=== PATIENT | female | born 1975 | race Caucasian/White ===

== ENCOUNTER → 2016-04-19 | Outpatient (CLI) | payer BC ==
[2016-04-19 13:28] VITALS: BP 119/76; PULSE 66; TEMP 97.7; BMI 23.5
[2016-04-19 16:31] LABS: ALT 47 U/L (9-52); AST 39 U/L (14-36); Alkaline Phosphatase 86 U/L (38-126); Anion Gap 11 mmol/L; Blood Urea Nitrogen 9 mg/dL (7-17); Calcium 9.6 mg/dL (8.4-10.2); Carbon Dioxide 27 mmol/L (22-30); Chloride 102 mmol/L (98-107); Cholesterol 188 mg/dL (<200); Glucose 90 mg/dL (74-99); HDL Cholesterol 104 mg/dL (40-60); Iron 101 ug/dL (37-170); Magnesium 2.2 mg/dL (1.6-2.3); Non-African American GFR(MDRD) >60 (>60 ml/min/1.73 sqM); Phosphorous 4.2 mg/dL (2.5-4.5); Potassium 4.7 mmol/L (3.5-5.1); Sodium 140 mmol/L (137-145); Total Bilirubin 0.7 mg/dL (0.2-1.3); Total Protein 7.7 g/dL (6.3-8.2); Triglycerides 80 mg/dL (<150)
[2016-04-19 16:35] LABS: CH 30.3; CHCM 34.6; HCT 47.3 % (34.0-46.0); HDW 2.94; HGB 15.9 gm/dL (11.4-16.0); MCH 29.5 pg (25.0-35.0); MCHC 33.5 g/dL (31.0-37.0); Mean Platelet Volume 8.6; RBC 5.38 m/uL (3.80-5.40); RDW 12.7 % (11.5-15.5); WBC 5.4 k/uL (3.8-10.6)
[2016-04-19 16:39] LABS: INR 1.1 (<1.1); Partial Thromboplastin Time 24.5 sec (22.0-30.0); Prothrombin Time 11.2 sec (9.0-12.0)
[2016-04-19 16:43] LABS: % Iron Saturation 40.4 % (20-50); Prealbumin 21 mg/dL (18-36); Total Iron Binding Capacity 250 ug/dL (265-497)
[2016-04-19 17:33] LABS: Vitamin B12 315 pg/mL (239-931)
[2016-04-19 19:39] LABS: Hemoglobin A1C 4.4 % (4.2-6.1)
[2016-04-22 22:13] LABS: Selenium 173 mcg/L (63-160)
--- NOTE | 2016-04-30 12:05 | P.PN ---
Progress Note - Text DATE OF CONSULTATION: 04/19/2016 CHIEF COMPLAINT: Panniculitis. HISTORY OF PRESENT ILLNESS: Belle Gary is a pleasant 41-year-old female who is status post Anival-en-Y gastric bypass in October 2014. She is over a year and a half out. Her highest in the program was 268 pounds for her 5-foot 5-inch frame. Her ideal body weight is 149 pounds. Today she comes in weighing 141 pounds. Since her last visit in August 2015 she has lost another 26 pounds. Total weight loss is 127 pounds. Percent excess weight loss is 107%. Body mass index has been reduced from 44.7 to 23.5. She denies any troubles with protein intake; however, she does have intermittent hair loss. Her is at bedside, who also helps with additional history, and reports some troubles with eating. She has main concerns with excess skin of her bilateral upper arms and thighs, especially of her abdomen. She has recurrent redness and infection of her belly button consistent with panniculitis. Now she presents for further evaluation, as she is looking for a panniculectomy. PAST MEDICAL HISTORY: 1. Gastroesophageal reflux disease, now resolved. 2. Colitis. 3. Osteoarthritis of the ankles, including knees. 4. Asthma. 5. Obstructive sleep apnea, now resolved. 6. Anxiety. 7. Insomnia. 8. Retrognathia. 9. Panniculitis. PAST SURGICAL HISTORY: 1. EGD. 2. Colonoscopy. 3. Hysterectomy. 4. Tonsillectomy. 5. Tubal ligation. 6. Left knee arthroscopy. 7. D&C. 8. LEEP procedure. 9. Upper endoscopy with prior balloon dilatation. 10. Laparoscopic cholecystectomy. MEDICATIONS: 1. Ambien. 2. Zinc. 3. Vitamin A. 4. Thiamine. 5. Multivitamin. 6. Synthroid. 7. Ana. 8. Vitamin D. 9. Vitamin B12. 10. Calcium. 11. Inhaler. ALLERGIES: 1. DEMEROL. 2. PROPOFOL. 3. WOOL. SOCIAL HISTORY: She is . Lifelong nontobacco user. She is employed. FAMILY HISTORY: Also pertinent for gastroesophageal reflux disease. Pertinent for morbid obesity, including thyroid cancer. She does have a family history of blood clots, including heart failure, bipolar disorder and hypertension. REVIEW OF SYSTEMS: CONSTITUTIONAL: Original weight of 268 pound for her 5-foot 5-inch frame. Initial body mass index was 44.7. Present weight down to 141 pounds. She has achieved 107% excess weight loss. Total weight loss lifetime is 127 pounds. Body mass index is now reduced to 23.5. Total BMI point reduction of 21.2. ENDOCRINE: History of new hypothyroidism. No reports of diabetes. GASTROINTESTINAL: Resolved gastroesophageal of reflux disease. No reports of recent dumping syndrome. HEENT: Has retrognathia which complicates obstructive sleep apnea. Denies any troubles with hearing. Wears glasses. RESPIRATORY: Resolved obstructive sleep apnea. No reports of dyspnea on exertion. MUSCULOSKELETAL: Moderate improvement of bilateral hip and knee and ankle pain. HEENT: No troubles with hearing. Wears glasses. CARDIOVASCULAR: No reports of chest pain or palpitations. NEURO: No reports of headaches or seizure disorders. PSYCH: No reports of suicidal ideation. Does have anxiety. HEMATOLOGIC: Has family history of blood clots on the paternal side. PHYSICAL EXAM: VITAL SIGNS: 97.7, 66, 118/76, 5 feet 5 inches, 141 pounds. Body mass index 23.5. GENERAL: Well-developed female in no acute distress. ABDOMEN: Pannus extends over pubis by over 5.5 cm with hyperemia along the umbilicus as well as the pannus consistent with panniculitis. No large palpable defect for ventral hernia. Weight of skin of over 5 pounds. SKIN: Moderate skin elastosis of the bilateral upper arms as well as the proximal thighs. MUSCULOSKELETAL: No clubbing, cyanosis, or edema. HEENT: No scleral icterus. Extraocular movements grossly intact. Moist buccal mucosa. NECK: Supple without lymphadenopathy. CHEST: Non-labored expirations with equal bilateral excursions. CARDIOVASCULAR: Regular rate and rhythm. NEURO: No focal or lateralizing signs. Cranial nerves II to XII grossly intact. ASSESSMENT: 1. Morbid obesity due to excess calories, now resolved. 2. Body mass index reduced from 44.6 to 23.5. 3. Status post Anival-en-Y gastric bypass. 4. Status post massive weight loss of 127 pounds. 5. Dumping syndrome with high caloric and sugar intake. 6. Retrognathia complicating obstructive sleep apnea, now improved. 7. Gastroesophageal reflux disease, resolved. 8. Osteoarthritis of the hips and knees, resolved status post weight loss. 9. Vitamin A deficiency. 10. Thiamine deficiency. 11. Vitamin D deficiency. 12. Folate deficiency. 13. Hypertensive heart disease without cardiomyopathy, resolved. 14. Zinc deficiency. 15. Elevated ferritin levels. 16. Vitamin B-12 deficiency. 17. Hypothyroidism. 18. Secondary hyperparathyroidism. 19. Dietary surveillance and counseling. 20. Previous history of hair loss. 21. Panniculitis of the abdomen. 22. Excess skin of the bilateral upper arms. 23. Excess skin of the bilateral upper thighs. PLAN: 1. She reports adequate protein intake; however, her also demonstrates concern about inadequate nutrition. Recommend bariatric metabolic panel. 2. She is also looking into a panniculectomy, whereby her nutrition has to be completely resolved, including any inadequate protein intake. 3. A panniculectomy packet was dispensed, including going over the benefits and risks of surgery. Four weeks at minimum of postoperative recovery was also described. 4. Risks of surgery, including flap failure, infection, need for further surgery, cosmetic deformity, including placement of GABRIEL drains, were also reviewed. 5. Risk of minimizing infection was also reviewed, including exposure to pets with her GABRIEL drains. 6. In the interim, recommend nystatin powder for symptomatic treatment. 7. She has obtained imaging photos regarding her panniculitis. 8. I recommend complete correction of nutrition prior to surgical intervention. 9. Recommend followup regarding her bariatric labs and correction of her baseline nutrition. 10. I have also described to her alternatives such as body-contouring procedures for her thighs and upper arms with a board-certified plastic surgeon for additional information. She also reports moderate ptosis of the breasts, for which again plastic surgery referral was advised. Thank you for allowing me to participate in the care of your patient.
== END | disposition home or self-care (01) ==
LOC: BARWHC3 12:37
PROVIDERS: ATTEND Surgery Plastic and Reconstructive Surgery
DX: E66.01 Morbid (severe) obesity due to excess calories (principal); D50.8 Other iron deficiency anemias; K90.89 Other intestinal malabsorption; E55.9 Vitamin D deficiency, unspecified; K74.1 Hepatic sclerosis; N19 Unspecified kidney failure; L65.9 Nonscarring hair loss, unspecified; K50.90 Crohn's disease, unspecified, without complications; K91.1 Postgastric surgery syndromes; E50.9 Vitamin A deficiency, unspecified; E51.9 Thiamine deficiency, unspecified; I11.9 Hypertensive heart disease without heart failure; E60 Dietary zinc deficiency; M79.3 Panniculitis, unspecified; R79.89 Other specified abnormal findings of blood chemistry; L98.7 Excessive and redundant skin and subcutaneous tissue; E53.8 Deficiency of other specified B group vitamins; E03.9 Hypothyroidism, unspecified; N25.81 Secondary hyperparathyroidism of renal origin; Z71.3 Dietary counseling and surveillance; Z98.84 Bariatric surgery status; Z68.23 Body mass index [BMI] 23.0-23.9, adult; Z88.4 Allergy status to anesthetic agent; Z91.048 Other nonmedicinal substance allergy status; Z88.5 Allergy status to narcotic agent; Z51.89 Encounter for other specified aftercare; Z79.899 Other long term (current) drug therapy
CPT/HCPCS: 80053; 80061; 82306; 82525; 82607; 82728; 82746; 83036; 83540; 83550; 83735; 83970; 84100; 84134; 84255; 84425; 84443; 84590; 84630; 85027; 85610; 85730; 99211

== ENCOUNTER 2016-05-26 06:45 | Day surgery (SDC) | payer BC ==
[2016-05-18 10:58] VITALS: BMI 23.6
--- NOTE | 2016-05-25 20:39 | P.GSHP ---
History of Present Illness H&P Date: 05/26/16 CHIEF COMPLAINT: Panniculitis. HISTORY OF PRESENT ILLNESS: Belle Gary is a pleasant 41-year-old female who is status post Anival-en-Y gastric bypass in October 2014. She is over a year and a half out. Her highest in the program was 268 pounds for her 5-foot 5-inch frame. Her ideal body weight is 149 pounds. Today she comes in weighing 138 pounds. Since her last visit in August 2015 she has lost another 30 pounds. Total weight loss is 131 pounds. Percent excess weight loss is 107%. Body mass index has been reduced from 44.7 to 23.5. She has main concerns with excess skin of her bilateral upper arms and thighs, especially of her abdomen. She has recurrent redness and infection of her belly button consistent with panniculitis. Now she presents for further evaluation, as she is looking for a panniculectomy. PAST MEDICAL HISTORY: 1. Gastroesophageal reflux disease, now resolved. 2. Colitis. 3. Osteoarthritis of the ankles, including knees. 4. Asthma. 5. Obstructive sleep apnea, now resolved. 6. Anxiety. 7. Insomnia. 8. Retrognathia. 9. Panniculitis. PAST SURGICAL HISTORY: 1. EGD. 2. Colonoscopy. 3. Hysterectomy. 4. Tonsillectomy. 5. Tubal ligation. 6. Left knee arthroscopy. 7. D&C. 8. LEEP procedure. 9. Upper endoscopy with prior balloon dilatation. 10. Laparoscopic cholecystectomy. MEDICATIONS: 1. Ambien. 2. Zinc. 3. Vitamin A. 4. Thiamine. 5. Multivitamin. 6. Synthroid. 7. Ana. 8. Vitamin D. 9. Vitamin B12. 10. Calcium. 11. Inhaler. ALLERGIES: 1. DEMEROL. 2. PROPOFOL. 3. WOOL. SOCIAL HISTORY: She is . Lifelong nontobacco user. She is employed. FAMILY HISTORY: Also pertinent for gastroesophageal reflux disease. Pertinent for morbid obesity, including thyroid cancer. She does have a family history of blood clots, including heart failure, bipolar disorder and hypertension. REVIEW OF SYSTEMS: CONSTITUTIONAL: Original weight of 268 pound for her 5-foot 5-inch frame. Initial body mass index was 44.7. Present weight down to 138 pounds. She has achieved 107% excess weight loss. Total weight loss lifetime is 131 pounds. Body mass index is now reduced to 23.5. Total BMI point reduction of 21.2. ENDOCRINE: History of new hypothyroidism. No reports of diabetes. GASTROINTESTINAL: Resolved gastroesophageal of reflux disease. No reports of recent dumping syndrome. HEENT: Has retrognathia which complicates obstructive sleep apnea. Denies any troubles with hearing. Wears glasses. RESPIRATORY: Resolved obstructive sleep apnea. No reports of dyspnea on exertion. MUSCULOSKELETAL: Moderate improvement of bilateral hip and knee and ankle pain. HEENT: No troubles with hearing. Wears glasses. CARDIOVASCULAR: No reports of chest pain or palpitations. NEURO: No reports of headaches or seizure disorders. PSYCH: No reports of suicidal ideation. Does have anxiety. HEMATOLOGIC: Has family history of blood clots on the paternal side. PHYSICAL EXAM: VITAL SIGNS: 97.7, 66, 118/76, 5 feet 5 inches, 138 pounds. Body mass index 23.5. GENERAL: Well-developed female in no acute distress. ABDOMEN: Pannus extends over pubis by over 5.5 cm with hyperemia along the umbilicus as well as the pannus consistent with panniculitis. No large palpable defect for ventral hernia. Weight of skin of over 5 pounds. SKIN: Moderate skin elastosis of the bilateral upper arms as well as the proximal thighs. MUSCULOSKELETAL: No clubbing, cyanosis, or edema. HEENT: No scleral icterus. Extraocular movements grossly intact. Moist buccal mucosa. NECK: Supple without lymphadenopathy. CHEST: Non-labored expirations with equal bilateral excursions. CARDIOVASCULAR: Regular rate and rhythm. NEURO: No focal or lateralizing signs. Cranial nerves II to XII grossly intact. ASSESSMENT: 1. Morbid obesity due to excess calories, now resolved. 2. Body mass index reduced from 44.6 to 23.5. 3. Status post Anival-en-Y gastric bypass. 4. Status post massive weight loss of 131 pounds. 5. Dumping syndrome with high caloric and sugar intake. 6. Retrognathia complicating obstructive sleep apnea, now improved. 7. Gastroesophageal reflux disease, resolved. 8. Osteoarthritis of the hips and knees, resolved status post weight loss. 9. Vitamin A deficiency. 10. Thiamine deficiency. 11. Vitamin D deficiency. 12. Folate deficiency. 13. Hypertensive heart disease without cardiomyopathy, resolved. 14. Zinc deficiency. 15. Elevated ferritin levels. 16. Vitamin B-12 deficiency. 17. Hypothyroidism. 18. Secondary hyperparathyroidism. 19. Dietary surveillance and counseling. 20. Previous history of hair loss. 21. Panniculitis of the abdomen. 22. Excess skin of the bilateral upper arms. 23. Excess skin of the bilateral upper thighs. PLAN: 1. A panniculectomy packet was dispensed, including going over the benefits and risks of surgery. Four weeks at minimum of postoperative recovery was also described. 2. Risks of surgery, including flap failure, infection, need for further surgery, cosmetic deformity, including placement of GABRIEL drains, were also reviewed. 3. Risk of minimizing infection was also reviewed, including exposure to pets with her GABRIEL drains. 4. Inpatient hospitalization anticipated for 2 nights. 5. DVT prophylaxis. 6. Antibiotics prophylaxis. Past Medical History Past Medical History: Asthma, Cancer, GERD/Reflux, Osteoarthritis (OA), Sleep Apnea/CPAP/BIPAP, Thyroid Disorder Additional Past Medical History / Comment(s): MIGRAINES, disc problems,sciatica , hx CERVICAL CANCER, varicose veins, no cpap used, hernia, History of Any Multi-Drug Resistant Organisms: None Reported Past Surgical History: Bariatric Surgery, Cholecystectomy, Hysterectomy, Orthopedic Surgery, Tonsillectomy, Tubal Ligation Additional Past Surgical History / Comment(s): LT KNEE arthroscopy , gastric bypass, D&C x 5, EGD with dilitation Past Anesthesia/Blood Transfusion Reactions: Previous Problems w/ Anesthesia, Motion Sickness Additional Past Anesthesia/Blood Transfusion Reaction / Comment(s): post op- almost passed out when getting up-BP dropped, says doesn't want propofol-causes severe pain in IV Past Psychological History: Anxiety, Depression Smoking Status: Never smoker Past Alcohol Use History: None Reported Additional Past Alcohol Use History / Comment(s): quit smoking 1990, smoked for 2 yrs Past Drug Use History: None Reported - Past Family History Brother(s) Additional Family Medical History / Comment(s): blood clot in "neck" Mother Family Medical History: Cancer, Deep Vein Thrombosis (DVT) Medications and Allergies Home Medications Medication Instructions Recorded Confirmed Type Multivitamins, Thera [Theragran] 1 each PO DAILY 02/18/15 05/18/16 History Albuterol Inhaler [Ventolin Hfa 2 puff INHALATION Q6H PRN 03/26/15 05/18/16 History Inhaler] Fexofenadine/Pseudoephedrine 1 each PO BID PRN 03/26/15 05/18/16 History [Ana-D 12 Hour Tablet] Zolpidem [Ambien] 10 mg PO HS 03/26/15 05/18/16 History Cyclobenzaprine [Flexeril] 10 mg PO DIRECTED PRN 05/18/16 05/18/16 History Miralax(Dose Unknown) 1 applicate PO DAILY PRN 05/18/16 05/18/16 History Naproxen [Naprosyn] 250 mg PO DIRECTED PRN 05/18/16 05/18/16 History Tramadol(Dose Unknown) 1 tab PO DIRECTED PRN 05/18/16 05/18/16 History Zinc Gluconate [Zinc] 50 mg PO DAILY 05/18/16 05/18/16 History Allergies Allergy/AdvReac Type Severity Reaction Status Date / Time propofol AdvReac Severe severe Verified 05/18/16 10:40 pain in IV meperidine HCl [From Demerol] AdvReac SEVERE Verified 05/18/16 10:40 Itching WOOL AdvReac Itching Uncoded 05/18/16 10:40
[~2016-05-26 06:45] MED LIST: ACETAMINOPHEN IV (For NPO) 1,000 MG in EMPTY BAG 1 BAG IVPB ONE; BUPIVACAINE LIPOSOME/PF 1.3% 20 ML, BUPIVACAIN-EPI 0.5%-1:200,000 25 ML, SODIUM CHLORID... MISCELLANE ONE; DEXAMETHASONE SOD PHOSPHATE 10 MG/ML 1 ML VIAL IV ONE; HYDROmorphone 1 MG/ML 1 ML SYRINGE IVP PRN; LACTATED RINGERS 1,000 ML IV SCH; MIDAZOLAM 2 MG/2 ML VIAL IV PRN; ONDANSETRON 4 MG/2 ML VIAL IVP ONE; SCOPOLAMINE 1.5MG/72HR PATCH TRANSDERM ONE; ceFAZolin 2 GM in SODIUM CHLORIDE 0.9% 100 ML IVPB ONE
[2016-05-26] MEDS ORDERED: METHOHEXITAL SODIUM 500 MG VIAL ONE (08:39)
[2016-05-26] MEDS ORDERED: fentaNYL (PF) 50 MCG/ML 2 ML AMP ONE (08:39)
[2016-05-26] MEDS ORDERED: MIDAZOLAM 2 MG/2 ML VIAL ONE (08:39)
[2016-05-26] MEDS ORDERED: SUCCINYLCHOLINE CHLORIDE 100 MG/5 ML SYR IV ONE (08:39)
[2016-05-26] MEDS ORDERED: LIDOCAINE 1% INJ 10MG/ML (20 ML MDV) ONE (08:39)
[2016-05-26] MEDS ORDERED: LACTATED RINGERS 1,000 ML IV ONE (09:51)
--- NOTE | 2016-05-26 11:10 | P.PCN ---
Date of Procedure: 05/26/16 Preoperative Diagnosis: Panniculitis Postoperative Diagnosis: Same Procedure(s) Performed: Panniculectomy, 2.8 pounds Anesthesia: GETA, local Surgeon: Nataliia Flores Pathology: other (2.8 pounds pannus) Condition: stable Disposition: floor Operative Findings: Pannus, 2.8 pounds. Excellent abdominal muscles.
[2016-05-26] MEDS ORDERED: NALOXONE 0.4 MG/ML 1 ML VIAL IV PRN (11:11)
[2016-05-26] MEDS ORDERED: METOCLOPRAMIDE 5 MG/ML 2 ML VIAL IVP PRN (11:11)
[2016-05-26] MEDS ORDERED: HYDROmorphone 1 MG/ML 1 ML SYRINGE IVP PRN (11:11)
[2016-05-26] MEDS ORDERED: ONDANSETRON 4 MG/2 ML VIAL IVP PRN (11:11)
[2016-05-26] MEDS ORDERED: ALBUTEROL NEBULIZED 2.5 MG/3 ML INHALATION PRN (11:17)
[2016-05-26] MEDS ORDERED: ACETAMINOPHEN IV (For NPO) 1,000 MG in EMPTY BAG 1 BAG IVPB ONE (12:00)
[2016-05-26] MEDS: MORPHINE SULFATE 4 MG/ML SYRINGE IVP ONE ×2 (12:10→12:16)
[2016-05-26] MEDS ORDERED: MORPHINE SULFATE 4 MG/ML SYRINGE IVP PRN (12:39)
[2016-05-26] MEDS: D5-0.45% NACL WITH KCL 20MEQ/L 1,000 ML IV SCH ×2 (13:33→20:28)
[2016-05-26] MEDS: ceFAZolin 2 GM in SODIUM CHLORIDE 0.9% 100 ML IVPB SCH (16:22)
[2016-05-26] MEDS ORDERED: SODIUM CHLORIDE 0.9% 1,000 ML IV ONE (16:58)
[2016-05-26] MEDS: SODIUM CHLORIDE 0.9% 2,000 ML IV ONE ×2 (17:00→18:10)
[2016-05-26] MEDS ORDERED: ZOLPIDEM 10 MG TAB PO SCH (21:00)
[2016-05-26] MEDS: HYDROcodone/APAP 5-325MG 1 EACH TAB PO PRN (23:02)
[2016-05-27] MEDS: ceFAZolin 2 GM in SODIUM CHLORIDE 0.9% 100 ML IVPB SCH (00:49)
[2016-05-27] MEDS: D5-0.45% NACL WITH KCL 20MEQ/L 1,000 ML IV SCH ×2 (01:44→09:15)
[2016-05-27] MEDS ORDERED: LEVOTHYROXINE 50 MCG TAB PO SCH (06:30)
[2016-05-27] MEDS: HYDROcodone/APAP 5-325MG 1 EACH TAB PO PRN ×2 (06:42→12:57)
[2016-05-27 07:43] LABS: Basophils # (A) 0.1 k/uL (0-0.2); Basophils % (A) 1 %; CH 30.3; CHCM 35.6; Eosinophils # (A) 0.1 k/uL (0-0.7); Eosinophils % (A) 1 %; HCT 31.7 % (34.0-46.0); Luc # (Auto) 0.13; Luc % (Auto) 2; Lymphocytes # (A) 1.8 k/uL (1.0-4.8); Lymphocytes % (A) 28 %; MCH 30.3 pg (25.0-35.0); MCHC 35.3 g/dL (31.0-37.0); MCV 85.7 fL (80.0-100.0); Mean Platelet Volume 7.7; Monocytes # (A) 0.4 k/uL (0-1.0); Monocytes % (A) 5 %; Neutrophils # (A) 4.2 k/uL (1.3-7.7); Neutrophils % (A) 64 %; RDW 12.7 % (11.5-15.5); WBC 6.6 k/uL (3.8-10.6); WBC (Perox) 7.06
[2016-05-27 07:51] LABS: HGB 11.2 gm/dL (11.4-16.0)
[2016-05-27 08:37] VITALS: RESP 20
[2016-05-27] MEDS ORDERED: ENOXAPARIN 30 MG/0.3 ML SYRINGE SQ SCH (09:00)
--- NOTE | 2016-05-27 12:10 | P.PN ---
Subjective Principal diagnosis: Panniculitis The patient is status post panniculectomy. Her pain is well-controlled. She demonstrates understanding of her GABRIEL training. She is ambulating. She had a brief history of dizziness which is now resolved. Objective - Vital Signs Vital signs: Vital Signs Temp 98.8 F 05/27/16 08:25 Pulse 73 05/27/16 08:25 Resp 20 05/27/16 08:25 BP 102/64 05/27/16 08:25 Pulse Ox 100 05/27/16 08:25 Intake & Output 05/26/16 05/27/16 05/27/16 18:59 06:59 18:59 Intake Total 2100 480 240 Output Total 1240 690 470 Balance 860 -210 -230 Weight 63.9 kg Intake: IV 2050 Oral 50 480 240 Output: Drainage 80 40 70 Lower Abdomen 30 Lower Abdomen "A" 80 10 40 lower abdomen "B" 30 Urine 700 650 400 Estimated Blood Loss 460 Other: Voiding Method Bedside Commode Toilet # Voids 1 1 - Exam GENERAL: Well developed and in no acute distress. Pleasant. HEENT: No sclera icterus. Extraocular movements grossly intact. Moist buccal mucosa. Head is atraumatic, normocephalic. Hears conversational speech. No nasal drainage. NECK: Supple without lymphadenopathy. No JV distention. CHEST: Non-labored respirations and equal bilateral excursions. CARDIOVASCULAR: Regular rate and rhythm. Palpable 2+ radial pulses. ABDOMEN: Soft, nontender. Nondistended. Dressings clean dry and intact. Abdominal binder present. Abdominal skin flaps are viable. MUSCULOSKELETAL: No clubbing, cyanosis or edema. NEUROLOGIC: No focal or lateralizing signs. PSYCH: Appropriate affect. Alert and oriented to person, place and time. - Labs CBC & Chem 7: 05/27/16 06:59 Labs: Abnormal Lab Results - Last 24 Hours (Table) 05/27/16 Range/Units 06:59 RBC 3.70 L (3.80-5.40) m/uL Hgb 11.2 L D (11.4-16.0) gm/dL Hct 31.7 L (34.0-46.0) % Assessment and Plan (1) Panniculitis Status: Chronic (2) Panniculus adiposus Status: Chronic (3) Localized adiposity Status: Acute (4) History of gastric bypass Status: Chronic (5) S/P panniculectomy Status: Acute Plan: 1. Discharge instructions were reviewed. 2. Continue with GABRIEL drains 3. No lifting over 4 pounds in 4 weeks addressed. 4. Follow up in the bariatric center in 48-72 hours.
--- NOTE | 2016-05-27 12:11 | P.DS ---
Providers Date of admission: 06/05/2016 Expected date of discharge: 05/27/16 Attending physician: Nataliia Flores Primary care physician: Lamine Torres [facility] Course: POSTOPERATIVE DIAGNOSES: 1. Morbid obesity due to excess calories, now resolved. 2. Body mass index reduced from 44.7 to 23.4. 3. Status post Anival-en-Y gastric bypass. 4. Status post massive weight loss of 127 pounds. 5. Vitamin A deficiency. 6. Vitamin D deficiency. 7. Hypothyroidism. 8. Secondary hyperparathyroidism. 9. Panniculitis of the abdomen. Belle Gary is a pleasant 41-year-old female who is status post Anival-en -Y gastric bypass in October 2014. She is over a year and a half out. Her highest in the program was 268 pounds for her 5-foot 5-inch frame. Her ideal body weight is 149 pounds. Today she comes in weighing 138 pounds. Since her last visit in August 2015 she has lost another 30 pounds. Total weight loss is 131 pounds. Percent excess weight loss is 107%. Body mass index has been reduced from 44.7 to 23.5. She has main concerns with excess skin of her bilateral upper arms and thighs, especially of her abdomen. She has recurrent redness and infection of her belly button consistent with panniculitis. Now she presents for further evaluation, as she is looking for a panniculectomy. She underwent a panniculectomy which was otherwise unremarkable. Discharge instructions were reviewed where she verbalized understanding. She will follow- up in the bariatric center in 48-72 hours. Pertinent Studies: None. Procedures: OPERATION: 1. Panniculectomy, 2.8 pounds. Patient Condition at Discharge: Stable Plan - Discharge Summary New Discharge Prescriptions: ALPRAZolam [Xanax] 0.25 mg PO Q8HR PRN #20 tab PRN Reason: Anxiety Hydrocodone/Acetaminophen [Jefferson 5-325] 1 - 2 each PO Q6HR PRN #60 tab PRN Reason: Pain Discharge Medication List Levothyroxine Sodium [Synthroid] 50 mcg PO DAILY #60 tab 09/03/15 [Rx] Ergocalciferol [Vitamin D2 (DRISDOL)] 50,000 unit PO Q7D #12 cap 05/04/16 [Rx] Vitamin A 8,000 unit PO DAILY #30 capsule 05/04/16 [Rx] ALPRAZolam [Xanax] 0.25 mg PO Q8HR PRN #20 tab 05/27/16 [Rx] Hydrocodone/Acetaminophen [Jefferson 5-325] 1 - 2 each PO Q6HR PRN #60 tab 05/27/16 [Rx] Calcium Carbonate [Calcium] 600 mg PO DAILY 05/31/16 [History] Cyanocobalamin (Vitamin B-12) [Vitamin B12] 1,000 mcg PO DAILY 05/31/16 [History ] Fluconazole [Diflucan] 200 mg PO DAILY PRN 05/31/16 [History] Fluticasone Nasal Climax [Flonase Nasal Climax] 1 spray EA NOSTRIL DAILY 05/31/16 [History] Nystatin 100,000Unit/gm Cream [Mycostatin Cream] 1 applic TOPICAL BID 05/31/16 [ History] Thiamine HCl [Vitamin B-1] 250 mg PO BID 05/31/16 [History] Follow up Appointment(s)/Referral(s): Nataliia Flores MD [STAFF PHYSICIAN] - 05/31/16 2:00 pm (Bariatric Center) Patient Instructions/Handouts: Scopolamine (Absorbed through the skin), Zan -Mccain Drain Care (GEN), Belt Lipectomy (DC), Abdominal Binder (DC) Activity/Diet/Wound Care/Special Instructions: No lifting over 4 pounds in 4 weeks. Do not remove binder. Do not remove dressing. Keep GABRIEL outputs recorded twice a day. Notify surgeon if any questions. Home health care for GABRIEL care. DO NOT REMOVE OR OPEN BINDER. Drink plenty of fluids, no house work, no driving, no stooping or bending. No showers, sponge bathing only. All [facility] (#[phone]) Discharge Disposition: HOME WITH HOME HEALTH SERVICES
[2016-05-27 12:48] VITALS: BP 124/75; PULSE 67; TEMP 98.1
--- NOTE | 2016-05-27 18:07 | P.OP ---
Date of Procedure: 05/26/16 Description of Procedure: SURGEON: JOAQUIN CUMMINGS MD [employer] TECHNICIAN: SHANNAN VARGHESE PREOPERATIVE DIAGNOSES: 1. Morbid obesity due to excess calories, now resolved. 2. Body mass index reduced from 44.7 to 23.4. 3. Status post Anival-en-Y gastric bypass. 4. Status post massive weight loss of 127 pounds. 5. Vitamin A deficiency. 6. Vitamin D deficiency. 7. Hypothyroidism. 8. Secondary hyperparathyroidism. 9. Panniculitis of the abdomen. POSTOPERATIVE DIAGNOSES: 1. Morbid obesity due to excess calories, now resolved. 2. Body mass index reduced from 44.7 to 23.4. 3. Status post Anival-en-Y gastric bypass. 4. Status post massive weight loss of 127 pounds. 5. Vitamin A deficiency. 6. Vitamin D deficiency. 7. Hypothyroidism. 8. Secondary hyperparathyroidism. 9. Panniculitis of the abdomen. OPERATION: 1. Panniculectomy, 2.8 pounds. ANESTHESIA: General with 85 mL of Exparel with sensorcaine and normal saline mixture. ESTIMATED BLOOD LOSS: 400 mL SPECIMENS REMOVED: Pannus 2.8 pounds. COMPLICATIONS: None. CONDITION: Stable. DRAINS: Two #19 Andrew drains below abdominal flap extending through the pubis. OPERATIVE FINDINGS: 1. Panniculectomy, 2.8 pounds. INDICATIONS: Belle Gary is a pleasant 41-year-old female who is status post Anival-en-Y gastric bypass in October 2014. She is over a year and a half out. Her highest in the program was 268 pounds for her 5-foot 5-inch frame. Her ideal body weight is 149 pounds. Today she comes in weighing 140 pounds. Total weight loss is 131 pounds. Percent excess weight loss is 107%. Body mass index has been reduced from 44.7 to 23.4. Despite medical therapy with prescription powders such as Nystatin over 2+ years, she has developed severe medical refractory panniculitis. Given her clinical symptoms, including massive weight loss, she elected for surgical intervention with a panniculectomy. Benefits and risks of the procedure including bleeding, infection, risk of flap failure, chronic pain, cosmetic deformity, need for further surgery were described at length. Informed consent was obtained. DESCRIPTION: In the preanesthesia care unit the patient was marked with an indelible marker. She had also been given heparin subcutaneously. The patient was brought into the operating room and laid in supine position. After general induction, a Walsh catheter was placed. The abdomen was then prepped and draped in standard sterile fashion using ChloraPrep. The skin was prepped as far laterally to the back, inferiorly to the upper thighs and superiorly to above the bilateral breasts. A timeout protocol was confirmed with the surgical team regarding patient's name , procedure to be performed, including preoperative medications. She had received Ancef 2 grams IV antibiotics. Once the time-out protocol was confirmed with the surgical team, the patient was re-marked with indelible marker whereby the midline of the xiphoid to the mons pubis was marked. The anterior/superior iliac spine along the bilateral hips was also marked. Approximately 8 cm above the pubis commissure a transverse incision was made for the inferior portion of the flap. Using a #10 blade, the incision was taken from the midline laterally to above the anterior/ superior iliac spine, initially on the left side of the patient and then on the right side of the patient. Electro-Bovie cautery was used to control for hemostasis. The dissection was taken down to the level of the fascia. Landmarks used were the xiphoid process as well as the bilateral costal margins for the superior margin. Care was taken to avoid any creation of dog ears during the dissection. For postop analgesia, 85 mL of Exparel with sensorcaine and normal saline mixture was infiltrated along the subcutaneous tissue. Hemostasis was once again checked with electro-Bovie cautery. Attention was now brought to closure of the flap. Using stainless steel skin vic, the midline was once again marked of the upper flap as well as the pubic commissure. The patient was placed in a flexed position of approximately 30 degrees at the hips. The pannus was extended inferiorly to the feet. The upper flap was created once the excess skin was excised. Again care was taken to avoid any dog ears along the lateral aspect of the incisions. Once excised, the pannus was weighed at 2.8 pounds. The upper and lower flaps were reapproximated at the midline and then laterally to the skin with skin vic. Once reapproximated, the skin was closed in layers using 0 Vicryl for the superficial fascial system followed by running 3- 0 Monocryl for the deep dermis. Prior to skin closure, two round #19 Andrew drains were placed underneath the flap and brought out just inferior to the incision along the pubis. Drain stitch using 2-0 nylon was placed. Once the incision was closed, bulb suction was attached. Hemostasis was checked. At the end of the procedure, the needle, sponge and instrument count was verified correct. Antibiotic Optifoam sponge dressing was placed over the incision following Dermabond tape. Antibiotic CHG Tegaderm was placed over the GABRIEL exit sites. The patient was then transferred to a hospital bed in a beach chair position. An abdominal binder was placed and marked. The patient was taken to the postanesthesia care unit in stable condition, awake and extubated. Total time for procedure from skin to skin was 108 minutes.
== END 2016-05-27 14:54 | disposition home health service (06) ==
LOC: OR 06:45 → 6PED 11:04 → OR 05-27 14:54
PROVIDERS: ATTEND Surgery Plastic and Reconstructive Surgery
DX: M79.3 Panniculitis, unspecified (principal); K52.9 Noninfective gastroenteritis and colitis, unspecified; J45.909 Unspecified asthma, uncomplicated; F41.9 Anxiety disorder, unspecified; G47.00 Insomnia, unspecified; M26.19 Other specified anomalies of jaw-cranial base relationship; Z98.84 Bariatric surgery status; E03.9 Hypothyroidism, unspecified; Z79.891 Long term (current) use of opiate analgesic; Z79.899 Other long term (current) drug therapy; Z88.4 Allergy status to anesthetic agent; Z88.5 Allergy status to narcotic agent; Z91.09 Other allergy status, other than to drugs and biological substances
CPT/HCPCS: 85025; 15830; J2250; J2270; J1100; J0690 ×2; J2405; J2001; J3010; J1170; J0131; J0330; C9290

== ENCOUNTER → 2016-05-31 | Outpatient (CLI) | payer BC ==
[2016-05-31 14:26] VITALS: BP 114/71; PULSE 74; RESP 16; TEMP 98; BMI 23.2
--- NOTE | 2016-07-01 10:11 | PN ---
DATE OF SERVICE: 05/31/2016 CHIEF COMPLAINT: Follow up panniculectomy. HISTORY OF PRESENT ILLNESS: Belle Gary is a 41-year-old female who is status post panniculectomy on 05/26/2016. From her procedure, she had lost another 3 pounds of skin. Today she comes in weighing 139 pounds. Her ideal body weight for her 5-foot, 5-inch frame is 149 pounds. Her initial weight was 268 pounds. She has lost 129 pounds. Percent excess weight loss is 108%. Body mass index is reduced from 44.7 down to 23.2. Total BMI point reduction is 21.5. She has completed resolution of gastroesophageal reflux disease. No reports of dysphagia. PHYSICAL EXAM: VITAL SIGNS: 98.0, 74, 16, 114/71, 5 feet 5 inches, 139 pounds. Body mass index 23.2. ABDOMEN: Soft, nontender, nondistended. External dressings were discontinued. JPs were serosanguineous. Output was between 30 to 40 mL daily. No signs of cellulitis or infection. Abdominal binder was placed. GENERAL: Well-developed female in no acute distress. MUSCULOSKELETAL: No clubbing, cyanosis, or edema. HEENT: No scleral icterus. Extraocular movements grossly intact. Moist buccal mucosa. NECK: Supple without lymphadenopathy. CHEST: Non-labored expirations with equal bilateral excursions. CARDIOVASCULAR: Regular rate and rhythm. NEURO: No focal or lateralizing signs. Cranial nerves II to XII grossly intact. ASSESSMENT: 1. Status post panniculectomy. 2. History of panniculitis resolved. 3. Status post ventral hernia repair. 4. Status post massive weight loss, 129 pounds. 5. History of Anival-en-Y gastric bypass. PLAN: 1. Recommend continued GABRIEL drains until outputs are at least less than 30 mL daily. 2. She will wear abdominal binder at all times. 3. Follow up in 1 week. [facility]
== END | disposition home or self-care (01) ==
LOC: BARWHC3 13:43
PROVIDERS: ATTEND Surgery Plastic and Reconstructive Surgery
DX: Z48.815 Encounter for surgical aftercare following surgery on the digestive system (principal); Z98.84 Bariatric surgery status; Z68.23 Body mass index [BMI] 23.0-23.9, adult
CPT/HCPCS: 99211

== ENCOUNTER → 2016-06-08 | Outpatient (CLI) | payer BC ==
[2016-06-08 09:43] VITALS: BP 115/75; PULSE 65; RESP 16; TEMP 97.8; BMI 22.9
--- NOTE | 2016-07-02 07:37 | PN ---
DATE OF SERVICE: 06/08/2016. CHIEF COMPLAINT: Follow-up panniculectomy. HISTORY OF PRESENT ILLNESS: Belle Gary is a 41-year-old female status post panniculectomy 05/26/2016. She is now 13 days postop. Her history is significant for a Anival-en-Y gastric bypass. Her highest weight was 268 pounds. Today she comes in weighing 138 pounds. She has lost 138 pounds lifetime. At her height of 5 foot 5 her ideal body weight is 149 pounds. Body mass index is reduced from 44.7 down to 23. Total BMI point reduction is 21.7. She has achieved 109% excess weight loss. She has lost 2 pounds since her last visit one week ago. Her pain is well controlled. No reports of fevers or chills. PHYSICAL EXAM: VITAL SIGNS: 97.8, 65, 16, 115/75, 5 foot 5, 138 pounds. Body mass index of 23. ABDOMEN: The rest of dressings were discontinued. Steri-Strip was also applied over her left flank and right portion of her incision. No signs of cellulitis or infection along the abdomen. GABRIEL drains were discontinued. GENERAL: Well-developed female in no acute distress. MUSCULOSKELETAL: No clubbing, cyanosis, or edema. HEENT: No scleral icterus. Extraocular movements grossly intact. Moist buccal mucosa. NECK: Supple without lymphadenopathy. CHEST: Non-labored expirations with equal bilateral excursions. CARDIOVASCULAR: Regular rate and rhythm. NEURO: No focal or lateralizing signs. Cranial nerves II to XII grossly intact. ASSESSMENT: 1. History of panniculitis, now resolved. 2. Status post panniculectomy. 3. Status post massive weight loss of 130 pounds. 4. History of Anival-en-Y gastric bypass. PLAN: 1. Recommend follow-up in one week. 2. I discussed with her the risk of developing seroma. She continues to wear her abdominal binder fairly tightly at all times. 3. May shower. 4. Follow-up one week as discussed. [facility]
== END | disposition home or self-care (01) ==
LOC: BARWHC3 08:26
PROVIDERS: ATTEND Surgery Plastic and Reconstructive Surgery
DX: Z48.815 Encounter for surgical aftercare following surgery on the digestive system (principal); Z98.84 Bariatric surgery status; Z68.23 Body mass index [BMI] 23.0-23.9, adult
CPT/HCPCS: 99211

== ENCOUNTER → 2017-02-21 | Outpatient (CLI) | payer OTHER ==
[2017-02-21 14:23] VITALS: BP 125/77; PULSE 64; RESP 16; TEMP 98; BMI 22.6
[2017-02-21 16:33] LABS: HCT 40.7 % (34.0-46.0); HGB 13.7 gm/dL (11.4-16.0); MCH 29.3 pg (25.0-35.0); MCHC 33.7 g/dL (31.0-37.0); MCV 87.1 fL (80.0-100.0); Mean Platelet Volume 7.1; Platelet Count 252 k/uL (150-450); RBC 4.67 m/uL (3.80-5.40); RDW 13.9 % (11.5-15.5)
[2017-02-21 16:36] LABS: INR 1.2 (<1.2); Partial Thromboplastin Time 23.7 sec (22.0-30.0); Prothrombin Time 11.2 sec (9.0-12.0)
[2017-02-21 16:42] LABS: ALT 38 U/L (9-52); AST 25 U/L (14-36); Albumin 4.5 g/dL (3.5-5.0); Alkaline Phosphatase 69 U/L (38-126); Anion Gap 9 mmol/L; Blood Urea Nitrogen 13 mg/dL (7-17); Calcium 9.6 mg/dL (8.4-10.2); Carbon Dioxide 26 mmol/L (22-30); Chloride 102 mmol/L (98-107); Cholesterol 192 mg/dL (<200); Glucose 86 mg/dL (74-99); HDL Cholesterol 96 mg/dL (40-60); LDL Cholesterol,Calculated 82 mg/dL (0-99); Phosphorous 4.7 mg/dL (2.5-4.5); Potassium 4.1 mmol/L (3.5-5.1); Sodium 137 mmol/L (137-145); Total Bilirubin 0.6 mg/dL (0.2-1.3); Total Protein 7.4 g/dL (6.3-8.2); Triglycerides 70 mg/dL (<150)
[2017-02-22 01:16] LABS: Vitamin D 25 Hydroxy 27.3 ng/mL (30.0-100.0)
[2017-02-22 01:18] LABS: Folate, Serum 3.4 ng/mL
[2017-02-22 01:23] LABS: Parathyroid Hormone Intact 110.5 pg/mL (14.0-72.0)
[2017-02-22 02:09] LABS: Iron Saturation 18.18 (12.00-45.00)
[2017-02-22 04:34] LABS: Hemoglobin A1C 4.5 % (4.0-6.0)
[2017-02-22 15:32] LABS: Zinc, Serum 71 ug/dL (60-130)
[2017-02-23 05:17] LABS: Vitamin B1 50 ug/L (38-122)
[2017-02-23 06:21] LABS: Vitamin A 40 ug/dL (38-106)
[2017-02-23 17:00] LABS: Selenium 151 mcg/L (63-160)
--- NOTE | 2017-04-03 21:18 | P.PN ---
Subjective Progress Note Date: 02/21/17 DATE OF SERVICE: 02/21/2017. CHIEF COMPLAINT: Follow-up gastric bypass HISTORY OF PRESENT ILLNESS: Belle Gary is a 42-year-old female status post panniculectomy 05/26/2016. Her history is significant for a Anival-en-Y gastric bypass in October 2014. Her highest weight was 268 pounds. Today she comes in weighing 136 pounds. She lost another 2 pounds in 9 months. She has lost 132 pounds lifetime. At her height of 5 foot 5 her ideal body weight is 149 pounds. Body mass index is reduced from 44.7 down to 22.7. Total BMI point reduction is 22. She has achieved 111% excess weight loss. Today she comes in complaining of right lower quadrant abdominal pain. She also reports constipation. She also complains of intermittent vomiting. She has a personal history of stricture which required upper endoscopy with dilations. Now she presents for follow-up. PAST MEDICAL HISTORY: 1. Gastroesophageal reflux disease, now resolved. 2. Colitis. 3. Osteoarthritis of the ankles, including knees. 4. Asthma. 5. Obstructive sleep apnea, now resolved. 6. Anxiety. 7. Insomnia. 8. Retrognathia. 9. Panniculitis, now resolved. PAST SURGICAL HISTORY: 1. EGD. 2. Colonoscopy. 3. Hysterectomy. 4. Tonsillectomy. 5. Tubal ligation. 6. Left knee arthroscopy. 7. D&C. 8. LEEP procedure. 9. Upper endoscopy with prior balloon dilatation. 10. Laparoscopic cholecystectomy. 11. Panniculectomy, May 2016. 12. Gastric bypass, October 2014. MEDICATIONS: 1. Flexeril 2. Tramadol. 3. Vitamin A. 4. Thiamine. 5. Multivitamin. 7. Synthroid. 8. Vitamin D. 9. Vitamin B12. 10. Calcium. 11. Estradiol ALLERGIES: 1. DEMEROL. 2. PROPOFOL. 3. WOOL. SOCIAL HISTORY: She is . Lifelong nontobacco user. She is employed. FAMILY HISTORY: Also pertinent for gastroesophageal reflux disease. Pertinent for morbid obesity, including thyroid cancer. She does have a family history of blood clots, including heart failure, bipolar disorder and hypertension. REVIEW OF SYSTEMS: CONSTITUTIONAL: Original weight of 268 pound for her 5-foot 5-inch frame. Initial body mass index was 44.7. Present weight down to 136 pounds. She has achieved 111% excess weight loss. Total weight loss lifetime is 132 pounds. Body mass index is now reduced to 22.7. Total BMI point reduction of 22. ENDOCRINE: History of hypothyroidism. No reports of diabetes. GASTROINTESTINAL: Resolved gastroesophageal of reflux disease. No reports of recent dumping syndrome. Has constipation. HEENT: Has retrognathia. Denies any troubles with hearing. Wears glasses. RESPIRATORY: Resolved obstructive sleep apnea. No reports of dyspnea on exertion. MUSCULOSKELETAL: Moderate improvement of bilateral hip and knee and ankle pain. CARDIOVASCULAR: No reports of chest pain or palpitations. NEURO: No reports of headaches or seizure disorders. PSYCH: No reports of suicidal ideation. Does have anxiety. HEMATOLOGIC: Has family history of blood clots on the paternal side. PHYSICAL EXAM: VITAL SIGNS: 5 foot 5, 136 pounds. Body mass index of 22.7. Vital Signs Temp 98 F 02/21/17 14:11 Pulse 64 02/21/17 14:11 Resp 16 02/21/17 14:11 BP 125/77 02/21/17 14:11 Pulse Ox ABDOMEN: Soft. No incisional hernias. Nontender. GENERAL: Well-developed female in no acute distress. MUSCULOSKELETAL: No clubbing, cyanosis, or edema. HEENT: No scleral icterus. Extraocular movements grossly intact. Moist buccal mucosa. NECK: Supple without lymphadenopathy. CHEST: Non-labored expirations with equal bilateral excursions. CARDIOVASCULAR: Regular rate and rhythm. NEURO: No focal or lateralizing signs. Cranial nerves II to XII grossly intact. ASSESSMENT: 1. Morbid obesity due to excess calories, now resolved. 2. Body mass index reduced from 44.6 to 22.7. 3. Status post Anival-en-Y gastric bypass. 4. Status post massive weight loss of 132 pounds. 5. Hypothyroidism. 6. Nausea with vomiting. 7. Right lower quadrant abdominal pain. 8. Status post panniculectomy. PLAN: 1. She is complaining of right lower quadrant abdominal pain. On exam was fairly benign. We'll continue to follow. 2. Recommend MiraLAX for constipation. 3. Recommend bariatric lab panel. 4. Recommend EGD as symptoms are highly suspicious for recurrent stricture. LABS: Laboratory Last Values WBC 6.0 k/uL (3.8-10.6) 02/21/17 15:50 RBC 4.67 m/uL (3.80-5.40) 02/21/17 15:50 Hgb 13.7 gm/dL (11.4-16.0) 02/21/17 15:50 Hct 40.7 % (34.0-46.0) 02/21/17 15:50 MCV 87.1 fL (80.0-100.0) 02/21/17 15:50 MCH 29.3 pg (25.0-35.0) 02/21/17 15:50 MCHC 33.7 g/dL (31.0-37.0) 02/21/17 15:50 RDW 13.9 % (11.5-15.5) 02/21/17 15:50 Plt Count 252 k/uL (150-450) 02/21/17 15:50 PT 11.2 sec (9.0-12.0) 02/21/17 15:50 INR 1.2 (<1.2) H 02/21/17 15:50 APTT 23.7 sec (22.0-30.0) 02/21/17 15:50 Sodium 137 mmol/L (137-145) 02/21/17 15:50 Potassium 4.1 mmol/L (3.5-5.1) 02/21/17 15:50 Chloride 102 mmol/L (98-107) 02/21/17 15:50 Carbon Dioxide 26 mmol/L (22-30) 02/21/17 15:50 Anion Gap 9 mmol/L 02/21/17 15:50 BUN 13 mg/dL (7-17) 02/21/17 15:50 Creatinine 0.72 mg/dL (0.52-1.04) 02/21/17 15:50 Est GFR (MDRD) Af Amer >60 (>60 ml/min/1.73 sqM) 02/21/17 15:50 Est GFR (MDRD) Non-Af >60 (>60 ml/min/1.73 sqM) 02/21/17 15:50 Glucose 86 mg/dL (74-99) 02/21/17 15:[address] Glu mg/dL 82 02/21/17 15:50 Hemoglobin A1c 4.5 % (4.0-6.0) 02/21/17 15:50 Calcium 9.6 mg/dL (8.4-10.2) 02/21/17 15:50 Phosphorus 4.7 mg/dL (2.5-4.5) H 02/21/17 15:50 Magnesium 2.0 mg/dL (1.6-2.3) 02/21/17 15:50 Iron 46 ug/dL (50-170) L 02/21/17 15:50 TIBC 253 ug/dL (228-460) 02/21/17 15:50 Iron Saturation 18.18 (12.00-45.00) 02/21/17 15:50 Ferritin 381.8 ng/mL (10.0-291.0) H 02/21/17 15:50 Total Bilirubin 0.6 mg/dL (0.2-1.3) 02/21/17 15:50 AST 25 U/L (14-36) 02/21/17 15:50 ALT 38 U/L (9-52) 02/21/17 15:50 Alkaline Phosphatase 69 U/L (38-126) 02/21/17 15:50 Total Protein 7.4 g/dL (6.3-8.2) 02/21/17 15:50 Albumin 4.5 g/dL (3.5-5.0) 02/21/17 15:50 Prealbumin 21.0 mg/dL (18.0-42.0) 02/21/17 15:50 Triglycerides 70 mg/dL (<150) 02/21/17 15:50 Cholesterol 192 mg/dL (<200) 02/21/17 15:50 LDL Cholesterol, Calc 82 mg/dL (0-99) 02/21/17 15:50 HDL Cholesterol 96 mg/dL (40-60) H 02/21/17 15:50 Vitamin A 40 ug/dL (38-106) 02/21/17 15:50 Vitamin B1 50 ug/L (38-122) 02/21/17 15:50 Vitamin B12 230.0 pg/mL (200.0-944.0) 02/21/17 15:50 Vitamin D 25-Hydroxy 27.3 ng/mL (30.0-100.0) L 02/21/17 15:50 Folate 3.4 ng/mL 02/21/17 15:50 TSH 4.280 mIU/L (0.465-4.680) 02/21/17 15:50 PTH Intact 110.5 pg/mL (14.0-72.0) H 02/21/17 15:50 Copper 1150 ug/L (810-1990) 02/21/17 15:50 Selenium 151 mcg/L (63-160) 02/21/17 15:50 Zinc 71 ug/dL (60-130) 02/21/17 15:50 Iron is low. Ferritin continues to be high. Vitamin D low. PTH elevated. Recommend calcium intake over 1500 mg daily. Recommend vitamin D supplement 5000 units daily. May need referral to a dean of student services for continued low iron with high ferritin. Objective - Labs CBC & Chem 7: 02/21/17 15:50 02/21/17 15:50
== END | disposition home or self-care (01) ==
LOC: BARWHC3 12:42
PROVIDERS: ATTEND Surgery Plastic and Reconstructive Surgery
DX: Z09 Encounter for follow-up examination after completed treatment for conditions other than malignant neoplasm (principal); E03.9 Hypothyroidism, unspecified; M17.0 Bilateral primary osteoarthritis of knee; M19.071 Primary osteoarthritis, right ankle and foot; M19.072 Primary osteoarthritis, left ankle and foot; E21.1 Secondary hyperparathyroidism, not elsewhere classified; E89.1 Postprocedural hypoinsulinemia; D50.9 Iron deficiency anemia, unspecified; K90.9 Intestinal malabsorption, unspecified; E55.9 Vitamin D deficiency, unspecified; K76.9 Liver disease, unspecified; N19 Unspecified kidney failure; K50.90 Crohn's disease, unspecified, without complications; Z88.5 Allergy status to narcotic agent; Z90.710 Acquired absence of both cervix and uterus; Z90.49 Acquired absence of other specified parts of digestive tract; Z79.3 Long term (current) use of hormonal contraceptives; Z90.89 Acquired absence of other organs; Z79.899 Other long term (current) drug therapy; Z98.890 Other specified postprocedural states; Z98.84 Bariatric surgery status
CPT/HCPCS: 84255; 84134; 84425; 80061; 80053; 82607; 82728; 82525; 82746; 83540; 83550; 83735; 84100; 84443; 84590; 84630; 85027; 85610; 85730; 82306; 83970; 83036; 97803; 36415; G0463; 99211

== ENCOUNTER → 2017-11-28 | Outpatient (CLI) | payer BC, OTHER ==
[2017-11-28 14:25] VITALS: BP 132/75; PULSE 76; RESP 16; TEMP 98; BMI 24.1
--- NOTE | 2017-11-28 14:55 | P.PN ---
Subjective Progress Note Date: 11/28/17 HPI: No reports of reflux. She reports epigastric pain. She reports pain when she eats too much. She reports food getting stuck ABDOMEN: No recurrent panniculitis PLAN: 1. Needs labs 2. EGD for GI bleed. 3. Colonoscopy for GI bleed. Objective - Vital Signs Vital signs: Vital Signs Temp 98 F 11/28/17 14:06 Pulse 76 11/28/17 14:06 Resp 16 11/28/17 14:06 BP 132/75 11/28/17 14:06 Pulse Ox Intake & Output 11/27/17 11/28/17 11/28/17 18:59 06:59 18:59 Weight 65.771 kg
== END ==
LOC: BARWHC3 12:54
PROVIDERS: ATTEND Surgery Plastic and Reconstructive Surgery
DX: R10.13 Epigastric pain (principal)
CPT/HCPCS: 99211

== ENCOUNTER 2018-01-28 09:47 | Day surgery (SDC) | payer BC, OTHER ==
[2018-01-25 09:38] VITALS: BMI 23.3
--- NOTE | 2018-01-27 21:51 | P.GSHP ---
History of Present Illness H&P Date: 01/28/18 CHIEF COMPLAINT: GERD and colon screen HISTORY OF PRESENT ILLNESS: The patient is a 42-year-old female who presents with gastroesophageal reflux disease and GI bleed. Upper and lower endoscopy were offered for further evaluation and management. PAST MEDICAL HISTORY: Please see list. PAST SURGICAL HISTORY: Please see list. MEDICATIONS: Please see list. ALLERGIES: Please see list. SOCIAL HISTORY: No illicit drug use FAMILY HISTORY: No reports of Crohn disease or ulcerative colitis. REVIEW OF ORGAN SYSTEMS: CONSTITUTIONAL: No reports of fevers or chills. GI: Denies any blood in stools or constipation. PHYSICAL EXAM: VITAL SIGNS: Stable GENERAL: Well-developed pleasant in no acute distress. HEENT: No scleral icterus. Extraocular movements grossly intact. Moist buccal mucosa. NECK: Supple without lymphadenopathy. CHEST: Unlabored respirations. Equal bilateral excursions. CARDIOVASCULAR: Regular rate and rhythm. Distal 2+ pulses. ABDOMEN: Soft, nondistended. MUSCULOSKELETAL: No clubbing, cyanosis, or edema. ASSESSMENT: 1. Gastroesophageal reflux disease 2. GI bleed. PLAN: 1. Recommend proceeding with an upper and lower endoscopy Past Medical History Past Medical History: Asthma, Cancer, Osteoarthritis (OA), Sleep Apnea/CPAP/ BIPAP, Thyroid Disorder Additional Past Medical History / Comment(s): MIGRAINES, ,sciatica, hx CERVICAL CANCER, varicose veins, no cpap used, hx hernias, severe chronic coliits, dumping syndrome, hypoglycemia, "borderline anemia", "stress urinary incontinence" History of Any Multi-Drug Resistant Organisms: None Reported Past Surgical History: Bariatric Surgery, Cholecystectomy, Hysterectomy, Orthopedic Surgery, Tonsillectomy, Tubal Ligation Additional Past Surgical History / Comment(s): LT KNEE arthroscopy , gastric bypass, D&C x 5, EGD with dilitation, colonoscopy, pannilectomy Past Anesthesia/Blood Transfusion Reactions: Previous Problems w/ Anesthesia, Family History of Problems w/ Anesthesia, Motion Sickness Additional Past Anesthesia/Blood Transfusion Reaction / Comment(s): diff IV starts, post op- almost passed out when getting up-BP dropped, says doesn't want propofol-causes severe pain in IV, son has diff waking up Smoking Status: Former smoker - Past Family History Brother(s) Additional Family Medical History / Comment(s): blood clot in "neck" Mother Family Medical History: Cancer, Deep Vein Thrombosis (DVT) Medications and Allergies Home Medications Medication Instructions Recorded Confirmed Type Cyclobenzaprine [Flexeril] 10 mg PO TID PRN 02/21/17 01/25/18 History Estradiol [Estradiol 0.025 MG 0.025 mg TRANSDERM Q3D 02/21/17 01/25/18 History Patch] Albuterol Inhaler [Ventolin Hfa 2 puff INHALATION Q6HR PRN 01/25/18 01/25/18 History Inhaler] Alive Multivitamin 1 tab PO DAILY 01/25/18 01/25/18 History Cyanocobalamin (Vitamin B-12) 2,000 mcg PO DAILY 01/25/18 01/25/18 History [Vitamin B-12] Ergocalciferol [Vitamin D2 50,000 unit PO MO 01/25/18 01/25/18 History (DRISDOL)] FLUoxetine HCL [PROzac] 20 mg PO W/LUNCH 01/25/18 01/25/18 History Ferrous Sulfate [Feosol] 325 mg PO DAILY 01/25/18 01/25/18 History Fluticasone Nasal Bow [Flonase 1 spray EA NOSTRIL DAILY PRN 01/25/18 01/25/18 History Nasal Bow] Ketorolac [Toradol] 10 mg PO Q6HR PRN 01/25/18 01/25/18 History L.acidoph,Paracasei, B.lactis 1 each PO DAILY 01/25/18 01/25/18 History [Probiotic] Levothyroxine Sodium [Synthroid] 50 mcg PO HS 01/25/18 01/25/18 History Montelukast [Singulair] 10 mg PO W/LUNCH 01/25/18 01/25/18 History [place] Pill 1 tab PO DAILY PRN 01/25/18 01/25/18 History Vitamin B Complex 1 each PO DAILY 01/25/18 01/25/18 History Zolpidem [Ambien] 10 mg PO HS 01/25/18 01/25/18 History Allergies Allergy/AdvReac Type Severity Reaction Status Date / Time propofol AdvReac Severe severe Verified 01/25/18 09:19 pain in IV meperidine HCl [From Demerol] AdvReac SEVERE Verified 01/25/18 09:19 Itching WOOL AdvReac Itching Uncoded 01/25/18 09:19
[~2018-01-28 09:47] MED LIST changes: -ACETAMINOPHEN IV (For NPO) 1,000 MG in EMPTY BAG 1 BAG IVPB ONE; -BUPIVACAINE LIPOSOME/PF 1.3% 20 ML, BUPIVACAIN-EPI 0.5%-1:200,000 25 ML, SODIUM CHLORID... MISCELLANE ONE; -DEXAMETHASONE SOD PHOSPHATE 10 MG/ML 1 ML VIAL IV ONE; -HYDROmorphone 1 MG/ML 1 ML SYRINGE IVP PRN; +LIDOCAINE 1% 20 ML VIAL (10MG/ML) FOR IV START INTRADERMA PRN; -ONDANSETRON 4 MG/2 ML VIAL IVP ONE; -SCOPOLAMINE 1.5MG/72HR PATCH TRANSDERM ONE; -ceFAZolin 2 GM in SODIUM CHLORIDE 0.9% 100 ML IVPB ONE; +fentaNYL (PF) 50 MCG/ML 2 ML AMP IV PRN
[2018-01-28 10:05] VITALS: TEMP 97
[2018-01-28 10:08] LABS: Glucose,Whole Blood 69 mg/dL (75-99)
[2018-01-28] MEDS ORDERED: DEXTROSE 50%-WATER 50 ML SYRINGE IVP ONE (10:24)
[2018-01-28] MEDS ORDERED: PROPOFOL 10 MG/ML 20 ML VIAL IV ONE (10:36)
[2018-01-28] MEDS ORDERED: LIDOCAINE 1% INJ 10MG/ML (20 ML MDV) ONE (10:36)
--- NOTE | 2018-01-28 10:47 | P.PCN ---
Date of Procedure: 01/28/18 Description of Procedure: PREOPERATIVE DIAGNOSIS: Dysphagia. Nausea with vomiting. POSTOPERATIVE DIAGNOSIS: Dysphagia. Nausea with vomiting. Gastrojejunal stricture. OPERATION: Esophagogastrojejunoscopy with balloon dilatation from 15 to 20 mm. SURGEON: Nataliia Flores MD ANESTHESIA: MAC. INDICATIONS: The patient is a 42-year-old female who presents with a history of dysphagia including nausea and vomiting. Benefits and risks of the procedure were described. Informed consent was obtained. DESCRIPTION: The patient was brought into the endoscopy suite and laid in the left lateral decubitus position. After a timeout was confirmed, the procedure was initiated. An Olympus gastroscope was passed along the posterior oropharynx down to the distal esophagus where the squamocolumnar junction was unremarkable. The gastric pouch was entered. A gastrojejunal stricture of 1 mm was found as a gastroscope was 9.2 mm in size. A [employer] balloon dilator was placed through the scope. Final insufflation up to 20 mm was performed with a total of 1 minute. The scope was advanced up to 60 cm from the incisors into the Anival limb. The mucosa of the gastrojejunal anastomosis was intact. No full-thickness injury was encountered. The GI tract was desufflated. The patient tolerated the procedure well. FINDINGS: Squamocolumnar junction unremarkable. Gastrojejunal stricture of 15mm encountered without ulceration encountered. Successful balloon dilatation 20 mm. RECOMMENDATIONS: Upper endoscopy as needed.
[2018-01-28 11:29] VITALS: BP 106/70; PULSE 53; RESP 18
--- NOTE | 2018-02-02 13:08 | P.PCN ---
Date of Procedure: 01/30/18 Description of Procedure: PREOPERATIVE DIAGNOSIS: Gastrointestinal bleed POSTOPERATIVE DIAGNOSIS: Gastrointestinal bleed, incidental OPERATION: Colonoscopy to the ileocecal valve and appendiceal orifice. SURGEON: Nataliia Flores MD. ANESTHESIA: MAC. INDICATIONS: The patient is a 42-year-old female who presented with recent history of gastrointestinal bleed. Benefits and risks were described and informed consent was obtained. DESCRIPTION OF PROCEDURE: The patient had undergone Gatorade, MiraLAX and Dulcolax prep. She had been brought into the operating room and laid in the left lateral decubitus position. After adequate intravenous sedation, the rectum was examined with 2% lidocaine jelly. No external hemorrhoids were encountered. The rectal tone was within normal limits. No lesions were palpated in the rectal vault. An Olympus colonoscope was advanced until the ileocecal valve and appendiceal orifice were clearly viewed. The prep was excellent with clear visualization of the mucosal folds. The scope was removed with visualization of each mucosal fold. No scattered diverticulosis was encountered. No colonic polyps were found. No evidence of focal colitis was found. Retroflexion of the scope demonstrated no internal hemorrhoids. The colon was desufflated. The patient had tolerated the procedure well. Withdrawal time was over 6 minutes. FINDINGS: No internal hemorrhoids, grade 1 No external prolapsed hemorrhoids. No arteriovenous malformations. No adenomatous polyps. No focal colitis. RECOMMENDATIONS: 1. Lower endoscopy as needed per screening guidelines. 2. Likely cause of gastrointestinal bleed upper GI source Plan - Discharge Summary New Discharge Prescriptions: No Action Estradiol [Estradiol 0.025 MG Patch] 0.025 mg TRANSDERM Q3D Cyclobenzaprine [Flexeril] 10 mg PO TID PRN PRN Reason: Muscle Pain Cyanocobalamin (Vitamin B-12) [Vitamin B-12] 2,000 mcg PO DAILY Vitamin B Complex 1 each PO DAILY Ferrous Sulfate [Feosol] 325 mg PO DAILY FLUoxetine HCL [PROzac] 20 mg PO W/LUNCH Albuterol Inhaler [Ventolin Hfa Inhaler] 2 puff INHALATION Q6HR PRN PRN Reason: sob Zolpidem [Ambien] 10 mg PO HS Montelukast [Singulair] 10 mg PO W/LUNCH Fluticasone Nasal [place] [Flonase Nasal [place]] 1 spray EA NOSTRIL DAILY PRN PRN Reason: Allergy Symptoms [place] Water Pill 1 tab PO DAILY PRN PRN Reason: Edema Levothyroxine Sodium [Synthroid] 50 mcg PO HS L.acidoph,Paracasei, B.lactis [Probiotic] 1 each PO DAILY Ergocalciferol [Vitamin D2 (DRISDOL)] 50,000 unit PO MO Alive Multivitamin 1 tab PO DAILY Ketorolac [Toradol] 10 mg PO Q6HR PRN PRN Reason: Pain Discharge Medication List Cyclobenzaprine [Flexeril] 10 mg PO TID PRN 02/21/17 [History] Estradiol [Estradiol 0.025 MG Patch] 0.025 mg TRANSDERM Q3D 02/21/17 [History] Albuterol Inhaler [Ventolin Hfa Inhaler] 2 puff INHALATION Q6HR PRN 01/25/18 [ History] Alive Multivitamin 1 tab PO DAILY 01/25/18 [History] Cyanocobalamin (Vitamin B-12) [Vitamin B-12] 2,000 mcg PO DAILY 01/25/18 [ History] Ergocalciferol [Vitamin D2 (DRISDOL)] 50,000 unit PO MO 01/25/18 [History] FLUoxetine HCL [PROzac] 20 mg PO W/LUNCH 01/25/18 [History] Ferrous Sulfate [Feosol] 325 mg PO DAILY 01/25/18 [History] Fluticasone Nasal [place] [Flonase Nasal [place]] 1 spray EA NOSTRIL DAILY PRN 01/25 [History] Ketorolac [Toradol] 10 mg PO Q6HR PRN 01/25/18 [History] L.acidbeni,Paracasei, B.lactis [Probiotic] 1 each PO DAILY 01/25/18 [History] Levothyroxine Sodium [Synthroid] 50 mcg PO HS 01/25/18 [History] Montelukast [Singulair] 10 mg PO W/LUNCH 01/25/18 [History] [place] Water Pill 1 tab PO DAILY PRN 01/25/18 [History] Vitamin B Complex 1 each PO DAILY 01/25/18 [History] Zolpidem [Ambien] 10 mg PO HS 01/25/18 [History] Follow up Appointment(s)/Referral(s): Nataliia Flores MD [STAFF PHYSICIAN] - 02/12/18 ([place]) Patient Instructions/Handouts: *[facility] - (Anesthesia) Endoscopy Discharge Instructions, Esophageal Dilation (IP), Colonoscopy (DC), Upper Endoscopy (DC) Discharge Disposition: HOME SELF-CARE
--- NOTE | 2018-02-02 13:11 | P.PCN ---
Date of Procedure: 01/28/18 Description of Procedure: PREOPERATIVE DIAGNOSIS: Gastrointestinal bleed POSTOPERATIVE DIAGNOSIS: Gastrointestinal bleed, incidental OPERATION: Colonoscopy to the ileocecal valve and appendiceal orifice. SURGEON: Nataliia Flores MD. ANESTHESIA: MAC. INDICATIONS: The patient is a 42-year-old female who presented with recent history of gastrointestinal bleed. Benefits and risks were described and informed consent was obtained. DESCRIPTION OF PROCEDURE: The patient had undergone Gatorade, MiraLAX and Dulcolax prep. She had been brought into the operating room and laid in the left lateral decubitus position. After adequate intravenous sedation, the rectum was examined with 2% lidocaine jelly. No external hemorrhoids were encountered. The rectal tone was within normal limits. No lesions were palpated in the rectal vault. An Olympus colonoscope was advanced until the ileocecal valve and appendiceal orifice were clearly viewed. The prep was excellent with clear visualization of the mucosal folds. The scope was removed with visualization of each mucosal fold. No scattered diverticulosis was encountered. No colonic polyps were found. No evidence of focal colitis was found. Retroflexion of the scope demonstrated no internal hemorrhoids. The colon was desufflated. The patient had tolerated the procedure well. Withdrawal time was over 6 minutes. FINDINGS: No internal hemorrhoids, grade 1 No external prolapsed hemorrhoids. No arteriovenous malformations. No adenomatous polyps. No focal colitis. RECOMMENDATIONS: 1. Lower endoscopy as needed per screening guidelines. 2. Likely cause of gastrointestinal bleed upper GI source
== END 2018-01-28 11:55 | disposition home or self-care (01) ==
LOC: ORWHC2ENDO 09:47
PROVIDERS: ATTEND Surgery Plastic and Reconstructive Surgery
DX: K56.699 Other intestinal obstruction unspecified as to partial versus complete obstruction (principal); K52.9 Noninfective gastroenteritis and colitis, unspecified; K92.2 Gastrointestinal hemorrhage, unspecified; J45.909 Unspecified asthma, uncomplicated; M19.90 Unspecified osteoarthritis, unspecified site; G47.30 Sleep apnea, unspecified; E07.9 Disorder of thyroid, unspecified; Z85.41 Personal history of malignant neoplasm of cervix uteri; K91.1 Postgastric surgery syndromes; E16.2 Hypoglycemia, unspecified; N39.3 Stress incontinence (female) (male); Z98.84 Bariatric surgery status; Z87.891 Personal history of nicotine dependence; Z79.890 Hormone replacement therapy; Z79.899 Other long term (current) drug therapy; Z88.4 Allergy status to anesthetic agent; Z88.5 Allergy status to narcotic agent; Z91.09 Other allergy status, other than to drugs and biological substances
CPT/HCPCS: 45378; 43249; J2001; J2704

== ENCOUNTER → 2018-02-22 | Outpatient (CLI) | payer BC, OTHER ==
[2018-02-22 15:55] LABS: Blood Urea Nitrogen 12 mg/dL (7-17)
--- NOTE | 2018-02-24 12:04 | CT ---
EXAMINATION TYPE: CT abdomen pelvis w con DATE OF EXAM: 02/22/2018 COMPARISON: None HISTORY: right sided abdominal pain, small bowel obstruction CT DLP: 552.3 mGycm Automated exposure control for dose reduction was used. TECHNIQUE: Helical acquisition of images from the lung bases through the pelvis have been completed. CONTRAST: Performed with Oral Contrast and with IV Contrast, patient injected with 100 mL of Isovue 300. FINDINGS: Surgical clips present in the upper abdomen. LUNG BASES: No significant abnormality is appreciated. AORTA: No significant abnormality is appreciated. LIVER/GB: Patient is post cholecystectomy. Mild prominence of the biliary ducts likely due to post ch olecystectomy change, no evident liver mass. PANCREAS: No significant abnormality is seen. SPLEEN: No significant abnormality is seen. ADRENALS: No significant abnormality is seen. KIDNEYS: No significant abnormality is seen. REPRODUCTIVE ORGANS: Not seen, surgical clips present in the pelvis BOWEL: Postop changes of the bowel are noted. Some focal thickening is noted near the site of one of the anastomoses, axial images 30 through 33 Appendix is normal. FREE AIR: No Free Air visible. ASCITES: Minimal fluid in the pelvis PELVIC ADENOPATHY: None visualized. RETROPERITONEAL ADENOPATHY: No Retroperitoneal Adenopathy visible. URINARY BLADDER: No significant abnormality is seen. OSSEOUS STRUCTURES: No significant abnormality is seen. IMPRESSION: POSTOPERATIVE CHANGES DESCRIBED. SOME LOCAL SMALL BOWEL THICKENING AT AN ANASTOMOSIS MAY BE POSTOP ERATIVE FINDING, NO EVIDENT OBSTRUCTION. MINIMAL FLUID IN THE PELVIS.
== END ==
LOC: RADCTMAIN 14:32
PROVIDERS: ATTEND Surgery Plastic and Reconstructive Surgery
DX: K63.89 Other specified diseases of intestine (principal); Z88.5 Allergy status to narcotic agent
CPT/HCPCS: 82565; 84520; 74177; 36415; Q9967

== ENCOUNTER 2018-04-25 08:36 | Day surgery (SDC) | payer BC, OTHER ==
[2018-04-24 14:31] VITALS: BMI 23.3
[~2018-04-25 08:36] MED LIST changes: +DEXAMETHASONE SOD PHOSPHATE 10 MG/ML 1 ML VIAL IV ONE; +HEPARIN SODIUM,PORCINE 5,000 UNIT/ML 1 ML VIAL SQ ONE; -MIDAZOLAM 2 MG/2 ML VIAL IV PRN; +ONDANSETRON 4 MG/2 ML VIAL IVP ONE; +Pre Op ABX Message 1 EACH MISC MISCELLANE ONE; +SCOPOLAMINE 1.5MG/72HR PATCH TRANSDERM ONE; -fentaNYL (PF) 50 MCG/ML 2 ML AMP IV PRN
[2018-04-25] MEDS ORDERED: ceFAZolin IN SWFI 2 GM/20 ML SYRINGE IVP STA (09:15)
--- NOTE | 2018-04-25 09:15 | P.GSHP ---
History of Present Illness H&P Date: 04/25/18 CHIEF COMPLAINT: History of intra-abdominal adhesions HISTORY OF PRESENT ILLNESS: The patient is a 43-year-old female who presents with history of intra-abdominal adhesions from multiple prior surgeries including increasing abdominal pain. She now presents for diagnostic laparoscopy including lysis of adhesions. PAST MEDICAL HISTORY: Please see list. PAST SURGICAL HISTORY: Please see list. MEDICATIONS: Please see list. ALLERGIES: Please see list. SOCIAL HISTORY: No illicit drug use FAMILY HISTORY: No reports of Crohn disease or ulcerative colitis. REVIEW OF ORGAN SYSTEMS: CONSTITUTIONAL: No reports of fevers or chills. GI: Denies any blood in stools or constipation. PHYSICAL EXAM: VITAL SIGNS: Stable GENERAL: Well-developed pleasant and in no acute distress. HEENT: No scleral icterus. Extraocular movements grossly intact. Moist buccal mucosa. NECK: Supple without lymphadenopathy. CHEST: Unlabored respirations. Equal bilateral excursions. CARDIOVASCULAR: Regular rate and rhythm. Distal 2+ pulses. ABDOMEN: Soft, diffuse abdominal tenderness. No peritonitis. MUSCULOSKELETAL: No clubbing, cyanosis, or edema. ASSESSMENT: 1. Diffuse abdominal pain. 2. History of multiple abdominal surgeries. 3. Intra-abdominal adhesions. PLAN: 1. Robotic lysis of adhesions were described in detail including risk of injury to the intestine, need for further surgery, and open technique. 2. DVT prophylaxis. 3. Antibiotic prophylaxis. Past Medical History Past Medical History: Asthma, Cancer, GERD/Reflux, Osteoarthritis (OA), Sleep Apnea/CPAP/BIPAP, Thyroid Disorder Additional Past Medical History / Comment(s): MIGRAINES, sciatica, hx CERVICAL CANCER 20 yrs ago, varicose veins, no CPAP use, hx hernias, severe chronic coliits, dumping syndrome, hypoglycemia, "hx borderline anemia", "stress urinary incontinence on ocassion. Poor circulation. History of Any Multi-Drug Resistant Organisms: None Reported Past Surgical History: Bariatric Surgery, Cholecystectomy, Hysterectomy, Orthopedic Surgery, Tonsillectomy, Tubal Ligation Additional Past Surgical History / Comment(s): Left knee arthroscopy, gastric bypass, D&C x 5, EGD with dilation, colonoscopy, panniculectomy. Past Anesthesia/Blood Transfusion Reactions: Previous Problems w/ Anesthesia, Family History of Problems w/ Anesthesia, Motion Sickness Additional Past Anesthesia/Blood Transfusion Reaction / Comment(s): Difficult IV starts, post op - almost passed out when getting up -BP dropped, says doesn' t want Propofol-causes severe pain in IV, son has difficulty waking up. Past Psychological History: Anxiety, Depression Smoking Status: Former smoker Past Alcohol Use History: None Reported Additional Past Alcohol Use History / Comment(s): Quit smoking 1990, smoked for 2 yrs. Past Drug Use History: None Reported - Past Family History Brother(s) Additional Family Medical History / Comment(s): blood clot in "neck" Mother Family Medical History: Cancer, Deep Vein Thrombosis (DVT) Medications and Allergies Home Medications Medication Instructions Recorded Confirmed Type Cyclobenzaprine [Flexeril] 10 mg PO TID PRN 02/21/17 04/24/18 History Estradiol [Estradiol 0.025 MG 0.025 mg TRANSDERM WEEKLY 02/21/17 04/24/18 History Patch] Albuterol Inhaler [Ventolin Hfa 2 puff INHALATION Q6HR PRN 01/25/18 04/24/18 History Inhaler] Alive Multivitamin 1 tab PO DAILY 01/25/18 04/24/18 History Cyanocobalamin (Vitamin B-12) 2,000 mcg PO DAILY 01/25/18 04/24/18 History [Vitamin B-12] Ergocalciferol [Vitamin D2 50,000 unit PO MO 01/25/18 04/24/18 History (DRISDOL)] FLUoxetine HCL [PROzac] 20 mg PO W/LUNCH 01/25/18 04/24/18 History Fluticasone Nasal [place] [Flonase 2 spray EA NOSTRIL DAILY PRN 01/25/18 04/24/18 History Nasal [place]] Ketorolac [Toradol] 10 mg PO Q6HR PRN 01/25/18 04/24/18 History L.acidoph,Paracasei, B.lactis 1 each PO DAILY 01/25/18 04/24/18 History [Probiotic] Montelukast [Singulair] 10 mg PO W/LUNCH 01/25/18 04/24/18 History [place] Water Pill 1 tab PO DAILY PRN 01/25/18 04/24/18 History Vitamin B Complex 1 each PO DAILY 01/25/18 04/24/18 History Zolpidem [Ambien] 10 mg PO HS 01/25/18 04/24/18 History ALPRAZolam [Xanax] 5 mg PO DIRECTED 04/24/18 04/24/18 History Levothyroxine Sodium [Synthroid] 75 mcg PO QAM 04/24/18 04/24/18 History Polyethylene Glycol 3350 [Miralax] 17 gm PO DAILY PRN 04/24/18 04/24/18 History Allergies Allergy/AdvReac Type Severity Reaction Status Date / Time propofol AdvReac Severe severe Verified 04/24/18 14:08 pain in IV meperidine HCl [From Demerol] AdvReac SEVERE Verified 04/24/18 14:08 Itching WOOL AdvReac Itching Uncoded 04/24/18 14:08
[2018-04-25 09:58] LABS: Glucose,Whole Blood 89 mg/dL (75-99)
[2018-04-25] MEDS ORDERED: fentaNYL (PF) 50 MCG/ML 2 ML AMP IV ONE (10:20)
[2018-04-25] MEDS ORDERED: MIDAZOLAM 2 MG/2 ML VIAL IV ONE (10:20)
--- NOTE | 2018-04-25 10:40 | P.ONQ ---
Anesthesiology Proc Note - PNB - Peripheral Nerve Block Performed Bilateral Transversus Abdominis Single Time Out Performed: Yes Procedure Start Time: 10:20 Procedure Stop Time: 10:30 Indication: Acute Post-Operative Pain, Analgesia, Requested by physician Sedation Type: Sedate with meaningful contact maintained Preparation: Sterile Prep Position: Supine Catheter: Indwelling Needle Types: On-Q Needle Size: 50mm (2") Needle Gauge: 21 Technique: Ultrasound Injectate: Other (see comment) (0.375% ropivacaine 20cc b/l) Blood Aspirated: No Pain Paresthesia on Injection Noted: No Resistance on Injection: Normal Events: Uneventful and Well Tolerated
[2018-04-25] MEDS ORDERED: ePHEDrine SULFATE/0.9% NACL/PF 50 MG/5 ML SYRINGE IV ONE (10:54)
[2018-04-25] MEDS ORDERED: GLYCOPYRROLATE 0.2 MG/ML 2 ML VIAL ONE (10:54)
[2018-04-25] MEDS ORDERED: VECURONIUM 10 MG VIAL IV ONE (10:54)
[2018-04-25] MEDS ORDERED: ROPIVACAINE 5 MG/ML 30 ML VIAL ONE (10:54)
[2018-04-25] MEDS ORDERED: PHENYLEPHRINE-0.9% NACL SYG 1 MG/10 ML SYRINGE ONE (10:54)
[2018-04-25] MEDS ORDERED: SUCCINYLCHOLINE CHLORIDE 100 MG/5 ML SYR IV ONE (10:54)
[2018-04-25] MEDS ORDERED: LIDOCAINE 1% INJ 10MG/ML (20 ML MDV) ONE (10:54)
[2018-04-25] MEDS ORDERED: fentaNYL (PF) 50 MCG/ML 2 ML AMP ONE (10:54)
[2018-04-25] MEDS ORDERED: PROPOFOL 10 MG/ML 20 ML VIAL IV ONE (10:54)
[2018-04-25] MEDS ORDERED: NEOSTIGMINE 1 MG/ML 10 ML VIAL ONE (10:54)
[2018-04-25] MEDS ORDERED: BUPIVACAIN-EPI 0.25%-1:200,000 30 ML VIAL SQ ONE ×2 (11:28)
[2018-04-25] MEDS ORDERED: LACTATED RINGERS 1,000 ML IV ONE (11:56)
[2018-04-25 12:24] VITALS: TEMP 97.2
--- NOTE | 2018-04-25 12:24 | P.OP ---
Date of Procedure: 04/25/18 Description of Procedure: SURGEON: NATALIIA FLORES MD PREOPERATIVE DIAGNOSES: 1. Right upper quadrant abdominal pain 2. Left lower quadrant abdominal pain. 3. Abdominal distension 4. History of previous abdominal surgeries with risk of peritoneal adhesion 5. Depressive disorder 6. Hypothyroidism 7. Generalized anxiety disorder 8. Asthma 9. Chronic constipation POSTOPERATIVE DIAGNOSES: 1. Right upper quadrant abdominal pain 2. Left lower quadrant abdominal pain. 3. Abdominal distension 4. History of previous abdominal surgeries with risk of peritoneal adhesion 5. Depressive disorder 6. Hypothyroidism 7. Generalized anxiety disorder 8. Asthma 9. Chronic constipation 10. Adhesive band disease with internal hernia and intermittent small bowel obstruction OPERATION: 1. Laparoscopic with lysis of adhesions ESTIMATED BLOOD LOSS: 5 mL. SPECIMENS REMOVED: Adhesive band COMPLICATIONS: None. OPERATIVE FINDINGS: 1. Thick and long adhesive band along the lower abdomen consistent with her abdominal pain causing internal hernia and intermittent small bowel obstruction INDICATIONS: The patient is a 43-year-old female who presents with abdominal gas bloat including right upper quadrant and lower abdominal pain. She has history of abdominal surgeries with risks of peritoneal adhesions. Surgical intervention with diagnostic laparoscopy and lysis of adhesions were described. Informed consent was obtained. Robotic assisted laparoscopic approach was described. Benefits and risks of the procedure including but not limited to bleeding, infection was described. Informed consent was obtained. DESCRIPTION OF PROCEDURE: Patient was brought to the operating room, placed in supine position. After general induction, the abdomen had been prepped and draped in standard sterile fashion. The robotic da Kathy XI system was primed. After a timeout protocol was performed, the patient had been prepped and draped in standard sterile fashion. A 5 mm 0 degrees laparoscopic trocar entry was performed along the left upper quadrant. Next, two 5 mm robotic ports were placed along the left lateral abdominal wall. The 5-mm trocar was exchanged for 8-mm port along the left upper quadrant. Diagnostic laparoscopy showed redundant hepatic flexure including moderate stool consistent with the patient's location of pain. Separately at the lower pelvis, no adhesive bands were found along the abdominal wall. Next full inspection of the abdomen was performed from the cecum including the small bowel towards the jejunojejunostomy. A thick and long adhesive band was confirmed at the left lower quadrant causing a small bowel volvulus which was detorsed using atraumatic graspers and bouvie cautery. The long adhesive band was excised and passed off for specimen. Final inspection was performed again starting from the cecum towards the ligament of [place]. No further adhesive bands were identified. The liver was unremarkable. No abnormality of her Anival limb was found. All pneumoperitoneum instruments were evacuated from the abdominal cavity. The incisions were reapproximated using 4-0 Monocryl in an interrupted subcuticular fashion. Please note along the trocar sites, local anesthetic was placed as a field block prior to insertion of all instruments. Exofin was applied to the rest of the incisions. At the end of the procedure needle, sponge, and instrument count had been verified correct by the surgical pathologist. The patient was transferred to postanesthesia care unit in stable condition. Plan - Discharge Summary Discharge Rx Participant: Yes New Discharge Prescriptions: New HYDROcodone/APAP 5-325MG [[place] 5-325] 1 tab PO Q4HR PRN 3 Days #18 tab PRN Reason: Pain Discontinued Ketorolac [Toradol] 10 mg PO Q6HR PRN PRN Reason: Pain No Action Estradiol [Estradiol 0.025 MG Patch] 0.025 mg TRANSDERM WEEKLY Cyclobenzaprine [Flexeril] 10 mg PO TID PRN PRN Reason: Muscle Pain Cyanocobalamin (Vitamin B-12) [Vitamin B-12] 2,000 mcg PO DAILY Vitamin B Complex 1 each PO DAILY FLUoxetine HCL [PROzac] 20 mg PO W/LUNCH Albuterol Inhaler [Ventolin Hfa Inhaler] 2 puff INHALATION Q6HR PRN PRN Reason: sob Zolpidem [Ambien] 10 mg PO HS Montelukast [Singulair] 10 mg PO W/LUNCH Fluticasone Nasal [place] [Flonase Nasal [place]] 2 spray EA NOSTRIL DAILY PRN PRN Reason: Allergy Symptoms [place] Water Pill 1 tab PO DAILY PRN PRN Reason: Edema L.acidoph,Paracasei, B.lactis [Probiotic] 1 each PO DAILY Ergocalciferol [Vitamin D2 (DRISDOL)] 50,000 unit PO MO Alive Multivitamin 1 tab PO DAILY Levothyroxine Sodium [Synthroid] 75 mcg PO QAM Polyethylene Glycol 3350 [Miralax] 17 gm PO DAILY PRN PRN Reason: Constipation ALPRAZolam [Xanax] 5 mg PO DIRECTED Discharge Medication List Cyclobenzaprine [Flexeril] 10 mg PO TID PRN 02/21/17 [History] Estradiol [Estradiol 0.025 MG Patch] 0.025 mg TRANSDERM WEEKLY 02/21/17 [History ] Albuterol Inhaler [Ventolin Hfa Inhaler] 2 puff INHALATION Q6HR PRN 01/25/18 [ History] Alive Multivitamin 1 tab PO DAILY 01/25/18 [History] Cyanocobalamin (Vitamin B-12) [Vitamin B-12] 2,000 mcg PO DAILY 01/25/18 [ History] Ergocalciferol [Vitamin D2 (DRISDOL)] 50,000 unit PO MO 01/25/18 [History] FLUoxetine HCL [PROzac] 20 mg PO W/LUNCH 01/25/18 [History] Fluticasone Nasal [place] [Flonase Nasal [place]] 2 spray EA NOSTRIL DAILY PRN 01/25 [History] L.acidoph,Paracasei, B.lactis [Probiotic] 1 each PO DAILY 01/25/18 [History] Montelukast [Singulair] 10 mg PO W/LUNCH 01/25/18 [History] [place] Water Pill 1 tab PO DAILY PRN 01/25/18 [History] Vitamin B Complex 1 each PO DAILY 01/25/18 [History] Zolpidem [Ambien] 10 mg PO HS 01/25/18 [History] ALPRAZolam [Xanax] 5 mg PO DIRECTED 04/24/18 [History] Levothyroxine Sodium [Synthroid] 75 mcg PO QAM 04/24/18 [History] Polyethylene Glycol 3350 [Miralax] 17 gm PO DAILY PRN 04/24/18 [History] HYDROcodone/APAP 5-325MG [[place] 5-325] 1 tab PO Q4HR PRN 3 Days #18 tab [Rx] Follow up Appointment(s)/Referral(s): Nataliia Flores MD [STAFF PHYSICIAN] - 04/30/18 Patient Instructions/Handouts: Lysis of Abdominal Adhesions (IP) Activity/Diet/Wound Care/Special Instructions: No lifting over 10 pounds in 5 days. May shower. No bathtub soaks Discharge Disposition: HOME SELF-CARE
[2018-04-25] MEDS ORDERED: KETOROLAC 30 MG/ML 1 ML VIAL IVP ONE (12:46)
[2018-04-25 13:02] VITALS: RESP 16
[2018-04-25] MEDS: HYDROmorphone 0.5 MG/0.5 ML SYRINGE IVP PRN ×2 (13:05→13:10)
[2018-04-25 13:47] VITALS: BP 108/65; PULSE 85
== END 2018-04-25 14:29 | disposition home or self-care (01) ==
LOC: OR 08:36
PROVIDERS: ATTEND Surgery Plastic and Reconstructive Surgery
DX: K56.50 Intestinal adhesions [bands], unspecified as to partial versus complete obstruction (principal); K46.9 Unspecified abdominal hernia without obstruction or gangrene; K56.2 Volvulus; Q43.8 Other specified congenital malformations of intestine; Z98.0 Intestinal bypass and anastomosis status; Z98.84 Bariatric surgery status; K59.09 Other constipation; J45.909 Unspecified asthma, uncomplicated; K21.9 Gastro-esophageal reflux disease without esophagitis; M19.90 Unspecified osteoarthritis, unspecified site; G47.30 Sleep apnea, unspecified; G43.909 Migraine, unspecified, not intractable, without status migrainosus; M54.30 Sciatica, unspecified side; K52.9 Noninfective gastroenteritis and colitis, unspecified; K91.1 Postgastric surgery syndromes; E03.9 Hypothyroidism, unspecified; F32.9 Major depressive disorder, single episode, unspecified; F41.1 Generalized anxiety disorder; Z99.89 Dependence on other enabling machines and devices; Z79.890 Hormone replacement therapy; Z79.899 Other long term (current) drug therapy; Z88.5 Allergy status to narcotic agent; Z91.09 Other allergy status, other than to drugs and biological substances; Z98.51 Tubal ligation status; Z90.49 Acquired absence of other specified parts of digestive tract; Z90.710 Acquired absence of both cervix and uterus; Z85.41 Personal history of malignant neoplasm of cervix uteri; Z87.891 Personal history of nicotine dependence
CPT/HCPCS: 64488; 88305; 44180; J2250; J1644; J1100; J2710; J2405; J2001; J3010; J1885; J2795; J2370; J0330; J2704; J1170; J0690

== ENCOUNTER → 2018-11-29 | Outpatient (CLI) | payer BC, OTHER ==
[2018-11-29 11:59] VITALS: BP 126/86; PULSE 67; TEMP 98.5; BMI 26.6
[2018-11-29 13:15] LABS: HCT 40.9 % (34.0-46.0); HGB 14.1 gm/dL (11.4-16.0); MCH 29.6 pg (25.0-35.0); MCHC 34.6 g/dL (31.0-37.0); MCV 85.6 fL (80.0-100.0); Mean Platelet Volume 6.8; Platelet Count 284 k/uL (150-450); RBC 4.77 m/uL (3.80-5.40); RDW 12.4 % (11.5-15.5); WBC 4.8 k/uL (3.8-10.6)
[2018-11-29 13:16] LABS: Partial Thromboplastin Time 24.4 sec (22.0-30.0); Prothrombin Time 10.4 sec (9.0-12.0)
[2018-11-29 19:24] LABS: Iron Saturation 34.34 (12.00-45.00)
[2018-11-29 19:25] LABS: ALT 22 U/L (8-44); AST 34 U/L (13-35); African American GFR (CKD) 121.3 (60.0-200.0); Albumin/Globulin Ratio 2.05 (1.60-3.17); Alkaline Phosphatase 72 U/L (41-126); BUN/Creat Ratio 15.71 Ratio (12.00-20.00); Calcium 9.4 mg/dL (8.7-10.3); Carbon Dioxide 28.9 mmol/L (21.6-31.8); Chloride 105 mmol/L (96-109); Cholesterol 200 mg/dL (0-200); Globulin 2.1 g/dL (1.6-3.3); Glucose 85 mg/dL (70-110); Potassium 4.5 mmol/L (3.5-5.5); Sodium 141 mmol/L (135-145); Total Bilirubin 0.4 mg/dL (0.3-1.2); Total Protein 6.4 g/dL (6.2-8.2); Triglycerides <50.0 mg/dL (0.0-149.0); VLDL Calculation 9.98 mg/dL (5.00-40.00)
[2018-11-29 19:33] LABS: Folate, Serum 21.5 ng/mL; Vitamin D 25 Hydroxy 57.1 ng/mL (30.0-100.0)
--- NOTE | 2018-11-29 20:39 | P.PN ---
Subjective Progress Note Date: 11/29/18 DATE OF SERVICE: 11/29/2018 CHIEF COMPLAINT: Follow-up gastric bypass HISTORY OF PRESENT ILLNESS: Belle Gary is a 43-year-old female status post Anival-en-Y gastric bypass in October 2014. She is 4 years out. She comes in with new moderate weight regain over 30 pounds since her gastric bypass in the last 3+ years. She reports fainting spells. She does not eat for over 8 to 10 to 12 hrs. She also reports new bilateral lower extremity swelling. She is not keeping a food diary journal. No report of dysphagia. Her highest weight was 268 pounds. Today she comes in weighing 160 pounds from 145 pounds, 1 year ago. She has gained 15 pounds in 1 year. She has lost 108 pounds lifetime. Lifetime percent excess weight loss is 91%. At her height of 5 foot 5 her ideal body weight is 149 pounds. Body mass index is reduced from 44.7 down to 26.6. PAST MEDICAL HISTORY: 1. Gastroesophageal reflux disease, now resolved. 2. Colitis. 3. Osteoarthritis of the ankles, including knees. 4. Asthma. 5. Obstructive sleep apnea, now resolved. 6. Anxiety. 7. Insomnia. 8. Retrognathia. 9. Panniculitis, now resolved. 10. Morbid obesity, BMI 44.7, initial PAST SURGICAL HISTORY: 1. EGD. 2. Colonoscopy. 3. Hysterectomy. 4. Tonsillectomy. 5. Tubal ligation. 6. Left knee arthroscopy. 7. D&C. 8. LEEP procedure. 9. Upper endoscopy with prior balloon dilatation. 10. Laparoscopic cholecystectomy. 11. Panniculectomy, May 2016. 12. Gastric bypass, October 2014. MEDICATIONS: Home Medications Medication Instructions Recorded Confirmed Cyclobenzaprine [Flexeril] 10 mg PO TID PRN 02/21/17 11/29/18 Estradiol [Estradiol 0.025 MG 0.025 mg TRANSDERM WEEKLY 02/21/17 11/29/18 Patch] Albuterol Inhaler [Ventolin Hfa 2 puff INHALATION Q6HR PRN 01/25/18 11/29/18 Inhaler] Alive Multivitamin 1 tab PO DAILY 01/25/18 11/29/18 Cyanocobalamin (Vitamin B-12) 2,000 mcg PO DAILY 01/25/18 11/29/18 [Vitamin B-12] Ergocalciferol [Vitamin D2 50,000 unit PO MO 01/25/18 11/29/18 (DRISDOL)] FLUoxetine HCL [PROzac] 20 mg PO W/LUNCH 01/25/18 11/29/18 Fluticasone Nasal [place] [Flonase 2 spray EA NOSTRIL DAILY PRN 01/25/18 11/29/18 Nasal [place]] L.acidoph,Paracasei, B.lactis 1 each PO DAILY 01/25/18 11/29/18 [Probiotic] Montelukast [Singulair] 10 mg PO W/LUNCH 01/25/18 11/29/18 Vitamin B Complex 1 each PO DAILY 01/25/18 11/29/18 Zolpidem [Ambien] 10 mg PO HS 01/25/18 11/29/18 Levothyroxine Sodium [Synthroid] 75 mcg PO QAM 04/24/18 11/29/18 Polyethylene Glycol 3350 [Miralax] 17 gm PO DAILY PRN 04/24/18 11/29/18 ALLERGIES: Allergies Allergy/AdvReac Type Severity Reaction Status Date / Time meperidine HCl [From Demerol] AdvReac SEVERE Verified 11/29/18 11:58 Itching WOOL AdvReac Itching Uncoded 11/29/18 11:58 SOCIAL HISTORY: She is . Lifelong nontobacco user. She is employed. FAMILY HISTORY: Also pertinent for gastroesophageal reflux disease. Pertinent for morbid obesity, including thyroid cancer. She does have a family history of blood clots, including heart failure, bipolar disorder and hypertension. REVIEW OF SYSTEMS: CONSTITUTIONAL: Her highest weight was 268 pounds. At her height of 5 foot 5 her ideal body weight is 149 pounds. Body mass index is reduced from 44.7 down. ENDOCRINE: History of hypothyroidism. No reports of diabetes. GASTROINTESTINAL: Resolved gastroesophageal of reflux disease. No reports of recent dumping syndrome. Has constipation. HEENT: Has retrognathia. Denies any troubles with hearing. Wears glasses. RESPIRATORY: Resolved obstructive sleep apnea. No reports of dyspnea on exertion. MUSCULOSKELETAL: Moderate improvement of bilateral hip and knee and ankle pain. CARDIOVASCULAR: No reports of chest pain or palpitations. NEURO: No reports of headaches or seizure disorders. PSYCH: No reports of suicidal ideation. Does have anxiety. HEMATOLOGIC: Has family history of blood clots on the paternal side. SKIN: Panniculitis resolved PHYSICAL EXAM: VITAL SIGNS: 5 foot 5, 160 pounds. Body mass index of 26.6 Vital Signs Temp 98.5 F 11/29/18 11:56 Pulse 67 11/29/18 11:56 Resp BP 126/86 11/29/18 11:56 Pulse Ox ABDOMEN: Soft. No incisional hernias. Nontender. GENERAL: Well-developed female in no acute distress. MUSCULOSKELETAL: No clubbing, cyanosis. Trace pedal edema. HEENT: No scleral icterus. Extraocular movements grossly intact. Moist buccal mucosa. NECK: Supple without lymphadenopathy. CHEST: Non-labored expirations with equal bilateral excursions. CARDIOVASCULAR: Regular rate and rhythm. NEURO: No focal or lateralizing signs. Cranial nerves II to XII grossly intact. PSYCH: Appropriate affect. Alert and oriented to person, placed, and time. ASSESSMENT: 1. Morbid obesity due to excess calories, now resolved. 2. Body mass index reduced from 44.6 to 26.6 3. Status post Anival-en-Y gastric bypass. 4. Status post massive weight loss of 132 pounds. 5. Hypothyroidism. 6. Hypoglycemia and syncopal episodes 7. Bilateral lower extremity edema 8. Dietary surveillance and counseling PLAN: 1. Recommend food diary journal 2. Also recommend combination carbohydrates including fats and protein to limit blood sugar spikes including hypoglycemia. 3. Ultrasound of bilateral extremities to exclude DVTs. 4. Referral to printed circuit boards router for hypoglycemia. 5. Dietary modifications advised. 6. Follow-up in 2 weeks. Laboratory Last Values WBC 4.8 k/uL (3.8-10.6) 11/29/18 12:23 RBC 4.77 m/uL (3.80-5.40) 11/29/18 12:23 Hgb 14.1 gm/dL (11.4-16.0) 11/29/18 12:23 Hct 40.9 % (34.0-46.0) 11/29/18 12:23 MCV 85.6 fL (80.0-100.0) 11/29/18 12:23 MCH 29.6 pg (25.0-35.0) 11/29/18 12:23 MCHC 34.6 g/dL (31.0-37.0) 11/29/18 12:23 RDW 12.4 % (11.5-15.5) 11/29/18 12:23 Plt Count 284 k/uL (150-450) 11/29/18 12:23 PT 10.4 sec (9.0-12.0) 11/29/18 12:23 INR 1.0 (<1.2) 11/29/18 12:23 APTT 24.4 sec (22.0-30.0) 11/29/18 12:23 Sodium 141 mmol/L (135-145) 11/29/18 12:23 Potassium 4.5 mmol/L (3.5-5.5) 11/29/18 12:23 Chloride 105 mmol/L (96-109) 11/29/18 12:23 Carbon Dioxide 28.9 mmol/L (21.6-31.8) 11/29/18 12:23 Anion Gap 7.10 mmol/L (4.00-12.00) 11/29/18 12:23 BUN 11.0 mg/dL (9.0-27.0) 11/29/18 12:23 Creatinine 0.7 mg/dL (0.6-1.5) 11/29/18 12:23 Est GFR (CKD-EPI)AfAm 121.3 (60.0-200.0) 11/29/18 12:23 Est GFR (CKD-EPI)NonAf 104.6 (60.0-200.0) 11/29/18 12:23 BUN/Creatinine Ratio 15.71 Ratio (12.00-20.00) 11/29/18 12:23 Glucose 85 mg/dL (70-110) 11/29/18 12:[address] Glu mg/dL 94 11/29/18 12:23 Hemoglobin A1c 4.9 % (4.0-6.0) 11/29/18 12:23 Calcium 9.4 mg/dL (8.7-10.3) 11/29/18 12:23 Phosphorus 4.0 mg/dL (2.4-5.1) 11/29/18 12:23 Magnesium 2.0 mg/dL (1.5-2.4) 11/29/18 12:23 Iron 91 ug/dL (50-170) 11/29/18 12:23 TIBC 265 ug/dL (228-460) 11/29/18 12:23 Iron Saturation 34.34 (12.00-45.00) 11/29/18 12:23 Ferritin 241.0 ng/mL (10.0-291.0) 11/29/18 12:23 Total Bilirubin 0.4 mg/dL (0.3-1.2) 11/29/18 12:23 AST 34 U/L (13-35) 11/29/18 12:23 ALT 22 U/L (8-44) 11/29/18 12:23 Alkaline Phosphatase 72 U/L (41-126) 11/29/18 12:23 Total Protein 6.4 g/dL (6.2-8.2) 11/29/18 12:23 Albumin 4.30 g/dL (3.80-4.90) 11/29/18 12:23 Globulin 2.1 g/dL (1.6-3.3) 11/29/18 12:23 Albumin/Globulin Ratio 2.05 g/dL (1.60-3.17) 11/29/18 12:23 Prealbumin 23.0 mg/dL (18.0-42.0) 11/29/18 12:23 Triglycerides <50.0 mg/dL (0.0-149.0) 11/29/18 12:23 Cholesterol 200 mg/dL (0-200) 11/29/18 12:23 LDL Cholesterol, Calc 79.0 mg/dL (0.0-131.0) 11/29/18 12:23 VLDL Cholesterol, Calc 9.98 mg/dL (5.00-40.00) 11/29/18 12:23 HDL Cholesterol 111.0 mg/dL (40.0-60.0) H 11/29/18 12:23 Cholesterol/HDL Ratio 1.80 11/29/18 12:23 Vitamin A 53 ug/dL (38-106) 11/29/18 12:23 Vitamin B1 101 ug/L (38-122) 11/29/18 12:23 Vitamin B12 354.0 pg/mL (200.0-944.0) 11/29/18 12:23 Vitamin D 25-Hydroxy 57.1 ng/mL (30.0-100.0) 11/29/18 12:23 Folate 21.5 ng/mL 11/29/18 12:23 TSH 3.270 uIU/mL (0.350-5.500) 11/29/18 12:23 PTH Intact 126.1 pg/mL (14.0-72.0) H 11/29/18 12:23 Copper 1147 ug/L (810-1990) 11/29/18 12:23 Selenium 169 mcg/L (63-160) H 11/29/18 12:23 Zinc 69 ug/dL (60-130) 11/29/18 12:23 Objective - Vital Signs Vital signs: Vital Signs Temp 98.5 F 11/29/18 11:56 Pulse 67 11/29/18 11:56 Resp BP 126/86 11/29/18 11:56 Pulse Ox Intake & Output 11/29/18 11/29/18 11/30/18 06:59 18:59 06:59 Weight 72.575 kg - Labs CBC & Chem 7: 11/29/18 12:23 11/29/18 12:23 Labs: Abnormal Lab Results - Last 24 Hours (Table) 11/29/18 11/29/18 Range/Units 12:23 12:23 HDL Cholesterol 111.0 H (40.0-60.0) mg/dL PTH Intact 126.1 H (14.0-72.0) pg/mL
[2018-11-29 20:46] LABS: Hemoglobin A1C 4.9 % (4.0-6.0)
[2018-12-02 12:11] LABS: Zinc, Serum 69 ug/dL (60-130)
[2018-12-03 06:39] LABS: Vitamin A 53 ug/dL (38-106)
[2018-12-04 12:54] LABS: Selenium 169 mcg/L (63-160)
[2018-12-06 14:35] LABS: Vit B1(Thiamine) 101 ug/L (38-122)
== END | disposition home or self-care (01) ==
LOC: BARWHC3 10:05
PROVIDERS: ATTEND Surgery Plastic and Reconstructive Surgery
DX: Z98.84 Bariatric surgery status (principal); E66.01 Morbid (severe) obesity due to excess calories; E03.9 Hypothyroidism, unspecified; E16.2 Hypoglycemia, unspecified; E21.1 Secondary hyperparathyroidism, not elsewhere classified; E89.1 Postprocedural hypoinsulinemia; D50.9 Iron deficiency anemia, unspecified; E44.0 Moderate protein-calorie malnutrition; E55.9 Vitamin D deficiency, unspecified; K74.1 Hepatic sclerosis; N19 Unspecified kidney failure; K50.90 Crohn's disease, unspecified, without complications; R55 Syncope and collapse; R63.4 Abnormal weight loss; R60.0 Localized edema; Z71.3 Dietary counseling and surveillance; Z88.5 Allergy status to narcotic agent; Z91.09 Other allergy status, other than to drugs and biological substances; Z68.26 Body mass index [BMI] 26.0-26.9, adult; Z79.899 Other long term (current) drug therapy
CPT/HCPCS: 80053; 80061; 82306; 82525; 82607; 82728; 82746; 83036; 83540; 83550; 83735; 83970; 84100; 84134; 84255; 84425; 84443; 84590; 84630; 85027; 85610; 85730; 99211

== ENCOUNTER → 2018-11-29 | Outpatient (CLI) | payer OTHER ==
--- NOTE | 2018-11-29 13:50 | US ---
EXAMINATION TYPE: US venous doppler duplex LE DATE OF EXAM: 11/29/2018 1:17 PM COMPARISON: CT abdomen CLINICAL HISTORY: R22.42 Swelling in Rt calf R22.41 Swelling in Lt. Bilateral calf swelling x 2 month s per patient. Post gastric bypass surgery 2015 per patient. SIDE PERFORMED: Bilateral TECHNIQUE: The lower extremity deep venous system is examined utilizing real time linear array sonog shanti with graded compression, doppler sonography and color-flow sonography. VESSELS IMAGED: Common Femoral Vein Deep Femoral Vein Greater Saphenous Vein * Femoral Vein Popliteal Vein Small Saphenous Vein * Proximal Calf Veins (* superficial vessels) Right Leg: Negative for DVT Left Leg: Negative for DVT Grayscale, color doppler, spectral doppler imaging performed of the deep veins of the lower extremiti es. There is normal flow, compressibility, vascular waveforms. IMPRESSION: No sonographic evidence of deep venous thrombosis within either of the lower extremities .
== END | disposition home or self-care (01) ==
LOC: RADUSWWP 12:45
PROVIDERS: ATTEND Surgery Plastic and Reconstructive Surgery
DX: R22.43 Localized swelling, mass and lump, lower limb, bilateral (principal)
CPT/HCPCS: 93970

== ENCOUNTER → 2018-12-11 | Outpatient (CLI) | payer OTHER ==
[2018-12-11 13:34] VITALS: BP 118/77; PULSE 79; TEMP 98; BMI 26.9
--- NOTE | 2018-12-11 13:56 | P.PN ---
Subjective Progress Note Date: 12/11/18 12/11/18: Feeling better now. She brought in her food diary journal. She is eating less than 40 g of protein daily. Her labs were reviewed with elevated PTH levels. Selenium is slightly elevated. US of the legs were negative for DVTs MS: Trace PLAN: 1. Increase protein to 75 grams daily 2. Decrease time between snacking. DATE OF SERVICE: 11/29/2018 CHIEF COMPLAINT: Follow-up gastric bypass HISTORY OF PRESENT ILLNESS: Belle Gary is a 43-year-old female status post Anival-en-Y gastric bypass in October 2014. She is 4 years out. She comes in with new moderate weight regain over 30 pounds since her gastric bypass in the last 3+ years. She reports fainting spells. She does not eat for over 8 to 10 to 12 hrs. She also reports new bilateral lower extremity swelling. She is not keeping a food diary journal. No report of dysphagia. Her highest weight was 268 pounds. Today she comes in weighing 160 pounds from 145 pounds, 1 year ago. She has gained 15 pounds in 1 year. She has lost 108 pounds lifetime. Lifetime percent excess weight loss is 91%. At her height of 5 foot 5 her ideal body weight is 149 pounds. Body mass index is reduced from 44.7 down to 26.6. PHYSICAL EXAM: VITAL SIGNS: 5 foot 5, 160 pounds. Body mass index of 26.6 Vital Signs Temp 98.0 F 12/11/18 13:30 Pulse 79 12/11/18 13:30 Resp BP 118/77 12/11/18 13:30 Pulse Ox Intake & Output 12/10/18 12/11/18 12/11/18 18:59 06:59 18:59 Weight 73.482 kg ABDOMEN: Soft. No incisional hernias. Nontender. GENERAL: Well-developed female in no acute distress. MUSCULOSKELETAL: No clubbing, cyanosis. Trace pedal edema. HEENT: No scleral icterus. Extraocular movements grossly intact. Moist buccal mucosa. NECK: Supple without lymphadenopathy. CHEST: Non-labored expirations with equal bilateral excursions. CARDIOVASCULAR: Regular rate and rhythm. NEURO: No focal or lateralizing signs. Cranial nerves II to XII grossly intact. PSYCH: Appropriate affect. Alert and oriented to person, placed, and time. ASSESSMENT: 1. Morbid obesity due to excess calories, now resolved. 2. Body mass index reduced from 44.6 to 26.6 3. Status post Anival-en-Y gastric bypass. 4. Status post massive weight loss of 132 pounds. 5. Hypothyroidism. 6. Hypoglycemia and syncopal episodes 7. Bilateral lower extremity edema 8. Dietary surveillance and counseling PLAN: 1. Recommend food diary journal 2. Also recommend combination carbohydrates including fats and protein to limit blood sugar spikes including hypoglycemia. 3. Ultrasound of bilateral extremities to exclude DVTs. 4. Referral to athletic agent for hypoglycemia. 5. Dietary modifications advised. 6. Follow-up in 2 weeks. Laboratory Last Values WBC 4.8 k/uL (3.8-10.6) 11/29/18 12:23 RBC 4.77 m/uL (3.80-5.40) 11/29/18 12:23 Hgb 14.1 gm/dL (11.4-16.0) 11/29/18 12:23 Hct 40.9 % (34.0-46.0) 11/29/18 12:23 MCV 85.6 fL (80.0-100.0) 11/29/18 12:23 MCH 29.6 pg (25.0-35.0) 11/29/18 12:23 MCHC 34.6 g/dL (31.0-37.0) 11/29/18 12:23 RDW 12.4 % (11.5-15.5) 11/29/18 12:23 Plt Count 284 k/uL (150-450) 11/29/18 12:23 PT 10.4 sec (9.0-12.0) 11/29/18 12:23 INR 1.0 (<1.2) 11/29/18 12:23 APTT 24.4 sec (22.0-30.0) 11/29/18 12:23 Sodium 141 mmol/L (135-145) 11/29/18 12:23 Potassium 4.5 mmol/L (3.5-5.5) 11/29/18 12:23 Chloride 105 mmol/L (96-109) 11/29/18 12:23 Carbon Dioxide 28.9 mmol/L (21.6-31.8) 11/29/18 12:23 Anion Gap 7.10 mmol/L (4.00-12.00) 11/29/18 12:23 BUN 11.0 mg/dL (9.0-27.0) 11/29/18 12:23 Creatinine 0.7 mg/dL (0.6-1.5) 11/29/18 12:23 Est GFR (CKD-EPI)AfAm 121.3 (60.0-200.0) 11/29/18 12:23 Est GFR (CKD-EPI)NonAf 104.6 (60.0-200.0) 11/29/18 12:23 BUN/Creatinine Ratio 15.71 Ratio (12.00-20.00) 11/29/18 12:23 Glucose 85 mg/dL (70-110) 11/29/18 12:[address] Glu mg/dL 94 11/29/18 12:23 Hemoglobin A1c 4.9 % (4.0-6.0) 11/29/18 12:23 Calcium 9.4 mg/dL (8.7-10.3) 11/29/18 12:23 Phosphorus 4.0 mg/dL (2.4-5.1) 11/29/18 12:23 Magnesium 2.0 mg/dL (1.5-2.4) 11/29/18 12:23 Iron 91 ug/dL (50-170) 11/29/18 12:23 TIBC 265 ug/dL (228-460) 11/29/18 12:23 Iron Saturation 34.34 (12.00-45.00) 11/29/18 12:23 Ferritin 241.0 ng/mL (10.0-291.0) 11/29/18 12:23 Total Bilirubin 0.4 mg/dL (0.3-1.2) 11/29/18 12:23 AST 34 U/L (13-35) 11/29/18 12:23 ALT 22 U/L (8-44) 11/29/18 12:23 Alkaline Phosphatase 72 U/L (41-126) 11/29/18 12:23 Total Protein 6.4 g/dL (6.2-8.2) 11/29/18 12:23 Albumin 4.30 g/dL (3.80-4.90) 11/29/18 12:23 Globulin 2.1 g/dL (1.6-3.3) 11/29/18 12:23 Albumin/Globulin Ratio 2.05 g/dL (1.60-3.17) 11/29/18 12:23 Prealbumin 23.0 mg/dL (18.0-42.0) 11/29/18 12:23 Triglycerides <50.0 mg/dL (0.0-149.0) 11/29/18 12:23 Cholesterol 200 mg/dL (0-200) 11/29/18 12:23 LDL Cholesterol, Calc 79.0 mg/dL (0.0-131.0) 11/29/18 12:23 VLDL Cholesterol, Calc 9.98 mg/dL (5.00-40.00) 11/29/18 12:23 HDL Cholesterol 111.0 mg/dL (40.0-60.0) H 11/29/18 12:23 Cholesterol/HDL Ratio 1.80 11/29/18 12:23 Vitamin A 53 ug/dL (38-106) 11/29/18 12:23 Vitamin B1 101 ug/L (38-122) 11/29/18 12:23 Vitamin B12 354.0 pg/mL (200.0-944.0) 11/29/18 12:23 Vitamin D 25-Hydroxy 57.1 ng/mL (30.0-100.0) 11/29/18 12:23 Folate 21.5 ng/mL 11/29/18 12:23 TSH 3.270 uIU/mL (0.350-5.500) 11/29/18 12:23 PTH Intact 126.1 pg/mL (14.0-72.0) H 11/29/18 12:23 Copper 1147 ug/L (810-1990) 11/29/18 12:23 Selenium 169 mcg/L (63-160) H 11/29/18 12:23 Zinc 69 ug/dL (60-130) 11/29/18 12:23 Objective - Vital Signs Vital signs: Vital Signs Temp 98.0 F 12/11/18 13:30 Pulse 79 12/11/18 13:30 Resp BP 118/77 12/11/18 13:30 Pulse Ox Intake & Output 12/10/18 12/11/18 12/11/18 18:59 06:59 18:59 Weight 73.482 kg
== END ==
LOC: BARWHC3 12:24
PROVIDERS: ATTEND Surgery Plastic and Reconstructive Surgery
DX: Z09 Encounter for follow-up examination after completed treatment for conditions other than malignant neoplasm (principal); E66.01 Morbid (severe) obesity due to excess calories; E03.9 Hypothyroidism, unspecified; E16.2 Hypoglycemia, unspecified; R55 Syncope and collapse; R60.0 Localized edema; Z71.3 Dietary counseling and surveillance; Z68.26 Body mass index [BMI] 26.0-26.9, adult; Z98.84 Bariatric surgery status
CPT/HCPCS: 97803; 99211

== ENCOUNTER → 2020-01-21 | Outpatient (CLI) | payer OTHER ==
--- NOTE | 2020-01-21 14:11 | P.PN ---
Subjective Progress Note Date: 01/21/20 DATE OF SERVICE: 01/21/2020 CHIEF COMPLAINT: Follow-up gastric bypass HISTORY OF PRESENT ILLNESS: Belle Gary is a 44-year-old female status post Anival-en-Y gastric bypass in October 2014. She is 5 years out. She comes in with fluctuating blood sugars. She has episodes of hypoglycemia. Her highest weight was 268 pounds.Today she comes in weighing 151 pounds from 162 pounds, 2 months ago. She has lost 10 pounds in 2 months. She has lost 1117 pounds lifetime. Lifetime percent excess weight loss is 98 %. At her height of 5 foot 5 her ideal body weight is 149 pounds. Body mass index is reduced from 44.7 down to 25.2. PHYSICAL EXAM: VITAL SIGNS: 5 foot 5, 151 pounds. Body mass index of 25.2 Vital Signs Temp 97.9 F 01/21/20 14:47 Pulse 62 01/21/20 14:47 Resp BP 117/77 01/21/20 14:47 Pulse Ox ABDOMEN: Soft. No incisional hernias. Nontender. GENERAL: Well-developed female in no acute distress. MUSCULOSKELETAL: No clubbing, cyanosis. HEENT: No scleral icterus. Extraocular movements grossly intact. Moist buccal mucosa. NECK: Supple without lymphadenopathy. CHEST: Non-labored expirations with equal bilateral excursions. CARDIOVASCULAR: Regular rate and rhythm. NEURO: No focal or lateralizing signs. Cranial nerves II to XII grossly intact. PSYCH: Appropriate affect. Alert and oriented to person, placed, and time. LABS: Reviewed. Total protein is low. PTH is elevated. ASSESSMENT: 1. Morbid obesity due to excess calories, now resolved. 2. Body mass index reduced from 44.6 to 25.2 3. Status post Anival-en-Y gastric bypass. 4. Status post massive weight loss 5. Hypothyroidism. 6. Hypoglycemia and syncopal episodes 7. Bilateral lower extremity edema 8. Dietary surveillance and counseling PLAN: 1. Recommend dietitician for blood sugar control. 2. Recommend change in diet described. 3. Recommend calcium 1200 mg daily
[2020-01-21 14:57] VITALS: BP 117/77; PULSE 62; TEMP 97.9; BMI 25.2
== END | disposition home or self-care (01) ==
LOC: BARWHC3 13:05
PROVIDERS: ATTEND Surgery Plastic and Reconstructive Surgery
DX: Z48.815 Encounter for surgical aftercare following surgery on the digestive system (principal); E03.9 Hypothyroidism, unspecified; E16.2 Hypoglycemia, unspecified; R55 Syncope and collapse; R60.0 Localized edema; Z98.84 Bariatric surgery status; Z71.3 Dietary counseling and surveillance
CPT/HCPCS: 99211

== ENCOUNTER → 2020-02-05 | Outpatient (CLI) | payer OTHER ==
[2020-02-05 15:18] VITALS: BMI 25.0
== END | disposition home or self-care (01) ==
LOC: BARWHC3 14:06
PROVIDERS: ATTEND Surgery Plastic and Reconstructive Surgery
DX: E66.01 Morbid (severe) obesity due to excess calories (principal)
CPT/HCPCS: 97803

== ENCOUNTER → 2020-03-31 | Outpatient (CLI) | payer OTHER ==
[2020-03-31 15:38] VITALS: BP 123/80; PULSE 80; RESP 18; TEMP 98.1; BMI 24.3
--- NOTE | 2020-03-31 16:01 | P.PN ---
Subjective Progress Note Date: 03/31/20 DATE OF SERVICE: 03/31/2020 CHIEF COMPLAINT: Follow-up gastric bypass HISTORY OF PRESENT ILLNESS: Belle Gary is a 45-year-old female status post Anival-en-Y gastric bypass in October 2014. She is over 5 years out. She comes in with new epigastric pain for over 1 month. She reports vomiting after lifting and pain going through her back. Her pain is below her ribs. She reports feeling nauseous. She reports sinking bowel movements that is brown without blood. She reports emesis. Her highest weight was 268 pounds.Today she comes in weighing 146 pounds from 151 pounds, 2 months ago. She has lost 6 pounds in 2 months. She has lost 122 pounds lifetime. Lifetime percent excess weight loss is 103 %. At her height of 5 foot 5 her ideal body weight is 149 pounds. Body mass index is reduced from 44.7 down to 24.3 PAST MEDICAL HISTORY: 1. Gastroesophageal reflux disease, now resolved. 2. Colitis. 3. Osteoarthritis of the ankles, including knees. 4. Asthma. 5. Obstructive sleep apnea, now resolved. 6. Anxiety. 7. Insomnia. 8. Retrognathia. 9. Panniculitis, now resolved. 10. Morbid obesity, BMI 44.7, initial PAST SURGICAL HISTORY: 1. EGD. 2. Colonoscopy. 3. Hysterectomy. 4. Tonsillectomy. 5. Tubal ligation. 6. Left knee arthroscopy. 7. D&C. 8. LEEP procedure. 9. Upper endoscopy with prior balloon dilatation. 10. Laparoscopic cholecystectomy. 11. Panniculectomy, May 2016. 12. Gastric bypass, October 2014. MEDICATIONS: Home Medications Medication Instructions Recorded Confirmed Cyclobenzaprine [Flexeril] 10 mg PO TID PRN 02/21/17 03/31/20 estradioL [Estradiol 0.025 MG 0.5 mg TRANSDERM WEEKLY 02/21/17 03/31/20 Patch] Albuterol Inhaler (Mhu) [Ventolin 2 puff INHALATION Q6HR PRN 01/25/18 03/31/20 Hfa Inhaler] Alive Multivitamin 1 tab PO DAILY 01/25/18 03/31/20 Cyanocobalamin (Vitamin B-12) 2,000 mcg PO DAILY 01/25/18 03/31/20 [Vitamin B-12] Ergocalciferol [Vitamin D2 50,000 unit PO MO 01/25/18 03/31/20 (DRISDOL)] FLUoxetine HCL [PROzac] 20 mg PO W/LUNCH 01/25/18 03/31/20 Fluticasone Nasal [place] [Flonase 2 spray EA NOSTRIL DAILY PRN 01/25/18 03/31/20 Nasal [place]] L.acidoph,Paracasei, B.lactis 1 each PO DAILY 01/25/18 03/31/20 [Probiotic] Montelukast [Singulair] 10 mg PO W/LUNCH 01/25/18 03/31/20 Vitamin B Complex 1 each PO DAILY 01/25/18 03/31/20 Zolpidem [Ambien] 10 mg PO HS 01/25/18 03/31/20 Levothyroxine Sodium [Synthroid] 75 mcg PO QAM 04/24/18 03/31/20 polyethylene glycoL 3350 [Miralax] 17 gm PO DAILY PRN 04/24/18 03/31/20 ALPRAZolam [Xanax] 0.25 mg PO BID PRN 01/21/20 03/31/20 Cetirizine HCl [Zyrtec] 10 mg PO DAILY 01/21/20 03/31/20 Dextrose Chew [Glucose Chew Tab] 4 gm PO Q10M PRN 01/21/20 03/31/20 Ibuprofen 800 mg PO Q12H PRN 01/21/20 03/31/20 Vitamin A 10,000 unit PO DAILY 01/21/20 03/31/20 hydrOXYzine HCL [Atarax] 25 mg PO QID PRN 01/21/20 03/31/20 ALLERGIES: 1. DEMEROL. 2. PROPOFOL. 3. WOOL. SOCIAL HISTORY: She is . Lifelong nontobacco user. She is employed. FAMILY HISTORY: Also pertinent for gastroesophageal reflux disease. Pertinent for morbid obesity, including thyroid cancer. She does have a family history of blood clots, including heart failure, bipolar disorder and hypertension. REVIEW OF SYSTEMS: CONSTITUTIONAL: Her highest weight was 268 pounds. At her height of 5 foot 5 her ideal body weight is 149 pounds. Body mass index is reduced from 44.7. ENDOCRINE: History of hypothyroidism. No reports of diabetes. GASTROINTESTINAL: Resolved gastroesophageal of reflux disease. No reports of recent dumping syndrome. HEENT: Has retrognathia. Denies any troubles with hearing. Wears glasses. RESPIRATORY: Resolved obstructive sleep apnea. No reports of dyspnea on exertion. MUSCULOSKELETAL: Moderate improvement of bilateral hip and knee and ankle pain. CARDIOVASCULAR: No reports of chest pain or palpitations. NEURO: No reports of headaches or seizure disorders. PSYCH: No reports of suicidal ideation. Does have anxiety. HEMATOLOGIC: Has family history of blood clots on the paternal side. SKIN: Panniculitis resolved PHYSICAL EXAM: VITAL SIGNS: 5 foot 5, 146 pounds. Body mass index of 24.3 Vital Signs Temp 98.1 F 03/31/20 15:31 Pulse 80 03/31/20 15:31 Resp 18 03/31/20 15:31 BP 123/80 03/31/20 15:31 Pulse Ox ABDOMEN: Soft. No incisional hernias. Mild epigastric tenderness. GENERAL: Well-developed female in no acute distress. MUSCULOSKELETAL: No clubbing, cyanosis. HEENT: No scleral icterus. Extraocular movements grossly intact. Moist buccal mucosa. NECK: Supple without lymphadenopathy. CHEST: Non-labored expirations with equal bilateral excursions. CARDIOVASCULAR: Regular rate and rhythm. NEURO: No focal or lateralizing signs. Cranial nerves II to XII grossly intact. PSYCH: Appropriate affect. Alert and oriented to person, placed, and time. LABS: Reviewed. PTH is elevated. ASSESSMENT: 1. Morbid obesity due to excess calories, now resolved. 2. Body mass index reduced from 44.6 to 24.3 3. Status post Anival-en-Y gastric bypass. 4. Status post massive weight loss 5. Hypothyroidism. 6. Hypoglycemia and syncopal episodes 7. Bilateral lower extremity edema 8. Dietary surveillance and counseling 9. Hyperparathyroidism PLAN: 1. She comes in with new epigastric pain with emesis. Recommend esophagram for evaluation of traumatic hiatal hernia. 2. Recommend bariatric labs with lipase to check for pancreatitis. Objective - Vital Signs Vital signs: Vital Signs Temp 98.1 F 03/31/20 15:31 Pulse 80 03/31/20 15:31 Resp 18 03/31/20 15:31 BP 123/80 03/31/20 15:31 Pulse Ox Intake & Output 03/30/20 03/31/20 03/31/20 18:59 06:59 18:59 Weight 66.224 kg
== END | disposition home or self-care (01) ==
LOC: BARWHC3 14:25
PROVIDERS: ATTEND Surgery Plastic and Reconstructive Surgery
DX: Z48.815 Encounter for surgical aftercare following surgery on the digestive system (principal); E03.9 Hypothyroidism, unspecified; E16.2 Hypoglycemia, unspecified; R60.0 Localized edema; E21.3 Hyperparathyroidism, unspecified; J45.909 Unspecified asthma, uncomplicated; F41.9 Anxiety disorder, unspecified; G47.00 Insomnia, unspecified; M19.072 Primary osteoarthritis, left ankle and foot; M19.071 Primary osteoarthritis, right ankle and foot; M17.0 Bilateral primary osteoarthritis of knee; Z88.8 Allergy status to other drugs, medicaments and biological substances; Z88.4 Allergy status to anesthetic agent; Z91.09 Other allergy status, other than to drugs and biological substances; Z79.899 Other long term (current) drug therapy; Z79.890 Hormone replacement therapy; Z71.3 Dietary counseling and surveillance; Z98.84 Bariatric surgery status; Z90.710 Acquired absence of both cervix and uterus
CPT/HCPCS: 99211

== ENCOUNTER → 2020-04-01 | Outpatient (CLI) | payer OTHER ==
--- NOTE | 2020-04-01 13:11 | FL ---
EXAMINATION TYPE: FL barium swallow DATE OF EXAM: 04/01/2020 LIMITED UGI: CLINICAL HISTORY: Morbid Obesity, gastric bypass surgery years ago. New onset epigastric pain and dysphagia over last few weeks. TECHNIQUE: Limited esophagram is performed utilizing two oz of an liquid barium 350. A total of 55 seconds of fluoroscopic time was utilized during procedure and 27 images obtained. COMPARISON: Prior upper GI study November 03, 2014. FINDINGS: The patient swallowed contrast without difficulty or delay. Esophageal peristalsis and mo tility show some stasis. There is satisfactory flow of contrast along the diaphragmatic hiatus into gastric remnant and subsequent flow into anastomotic efferent small bowel loop. Extensive surgical ch anges epigastric region redemonstrated. There is no evidence of contrast extravasation to suggest saray k. Cholecystectomy clips incidentally noted. IMPRESSION: No evidence of leak or significant obstruction status post gastric bypass surgical change s years earlier. Mild underlying esophageal dysmotility otherwise unremarkable study.
[2020-04-01 13:40] LABS: HCT 39.5 % (34.0-46.0); MCH 30.7 pg (25.0-35.0); MCHC 35.5 g/dL (31.0-37.0); MCV 86.5 fL (80.0-100.0); Mean Platelet Volume 6.7; Platelet Count 367 k/uL (150-450); RBC 4.57 m/uL (3.80-5.40); RDW 12.3 % (11.5-15.5); WBC 5.6 k/uL (3.8-10.6)
[2020-04-01 13:53] LABS: ALT 10 U/L (4-34); AST 21 U/L (14-36); African American GFR (CKD) >90 (>60 ml/min/1.73 sqM); Albumin 3.8 g/dL (3.5-5.0); Alkaline Phosphatase 57 U/L (38-126); Anion Gap 1 mmol/L; Blood Urea Nitrogen 11 mg/dL (7-17); Calcium 9.1 mg/dL (8.4-10.2); Carbon Dioxide 32 mmol/L (22-30); Chloride 103 mmol/L (98-107); Cholesterol 164 mg/dL (<200); Glucose 96 mg/dL (74-99); HDL Cholesterol 82 mg/dL (40-60); LDL Cholesterol,Calculated 68 mg/dL (0-99); Non-African American GFR(CKD) >90 (>60 ml/min/1.73 sqM); Potassium 4.3 mmol/L (3.5-5.1); Sodium 136 mmol/L (137-145); Total Bilirubin 0.4 mg/dL (0.2-1.3); Total Protein 6.4 g/dL (6.3-8.2); Triglycerides 68 mg/dL (<150)
[2020-04-01 13:58] LABS: Partial Thromboplastin Time 24.8 sec (22.0-30.0)
[2020-04-02 05:33] LABS: % Iron Saturation 26.38 (12.00-45.00); Iron 62 ug/dL (50-170); Total Iron Binding Capacity 235 ug/dL (228-460)
[2020-04-02 05:42] LABS: Ferritin 173.9 ng/mL (10.0-291.0)
[2020-04-02 05:43] LABS: Folate, Serum 4.2 ng/mL
[2020-04-02 13:14] LABS: Zinc, Serum 59 ug/dL (60-130)
[2020-04-04 17:05] LABS: Selenium 149 mcg/L (63-160)
[2020-04-05 07:04] LABS: Vitamin A 34 ug/dL (38-106)
[2020-04-05 07:13] LABS: Vit B1(Thiamine) 61 ug/L (38-122)
== END | disposition home or self-care (01) ==
LOC: RADUSWWP 12:14
PROVIDERS: ATTEND Surgery Plastic and Reconstructive Surgery
DX: K22.4 Dyskinesia of esophagus (principal); E66.01 Morbid (severe) obesity due to excess calories; D50.8 Other iron deficiency anemias; E44.0 Moderate protein-calorie malnutrition; E55.9 Vitamin D deficiency, unspecified; K74.1 Hepatic sclerosis; N19 Unspecified kidney failure; K50.90 Crohn's disease, unspecified, without complications; E89.1 Postprocedural hypoinsulinemia; K90.89 Other intestinal malabsorption; Z98.84 Bariatric surgery status
CPT/HCPCS: 36415; 74220; 80053; 80061; 82306; 82525; 82607; 82728; 82746; 83036; 83540; 83550; 83735; 83970; 84100; 84134; 84255; 84425; 84443; 84590; 84630; 85027; 85610; 85730

== ENCOUNTER 2020-04-07 10:57 | Day surgery (SDC) | payer OTHER ==
[2020-04-02 14:41] VITALS: BMI 24.3
--- NOTE | 2020-04-07 09:41 | P.GSHP ---
History of Present Illness H&P Date: 04/07/20 CHIEF COMPLAINT: GERD HISTORY OF PRESENT ILLNESS: The patient is a 45-year-old female who presents reports gastroesophageal reflux disease. Upper endoscopy was offered for further evaluation and management. PAST MEDICAL HISTORY: Please see list. PAST SURGICAL HISTORY: Please see list. MEDICATIONS: Please see list. ALLERGIES: Please see list. SOCIAL HISTORY: No illicit drug use FAMILY HISTORY: No reports of Crohn disease or ulcerative colitis. REVIEW OF ORGAN SYSTEMS: CONSTITUTIONAL: No reports of fevers or chills. GI: Denies any blood in stools or constipation. PHYSICAL EXAM: VITAL SIGNS: Stable GENERAL: Well-developed and pleasant in no acute distress. HEENT: No scleral icterus. Extraocular movements grossly intact. Moist buccal mucosa. NECK: Supple without lymphadenopathy. CHEST: Unlabored respirations. Equal bilateral excursions. CARDIOVASCULAR: Regular rate and rhythm. Distal 2+ pulses. ABDOMEN: Soft, nondistended. MUSCULOSKELETAL: No clubbing, cyanosis, or edema. ASSESSMENT: 1. Gastroesophageal reflux disease PLAN: 1. Recommend proceeding with an upper endoscopy Past Medical History Past Medical History: Asthma, Cancer, GERD/Reflux, Osteoarthritis (OA), Sleep Apnea/CPAP/BIPAP, Thyroid Disorder Additional Past Medical History / Comment(s): MIGRAINES, sciatica, hx CERVICAL CANCER 20 yrs ago, varicose veins, no CPAP use, hx hernias, severe chronic colitis, dumping syndrome, hypoglycemia, "hx borderline anemia", "stress urinary incontinence on occ. Poor circulation, hands/legs cold, discolor often. c/o abd pain, NV, dry heaves. History of Any Multi-Drug Resistant Organisms: None Reported Past Surgical History: Bariatric Surgery, Cholecystectomy, Hysterectomy, Orthopedic Surgery, Tonsillectomy, Tubal Ligation Additional Past Surgical History / Comment(s): Left knee arthroscopy x2, last 2019. Gastric bypass 2015, D&C x 5, EGD with dilation, colonoscopy, panniculectomy. Past Anesthesia/Blood Transfusion Reactions: Previous Problems w/ Anesthesia, Family History of Problems w/ Anesthesia, Motion Sickness Additional Past Anesthesia/Blood Transfusion Reaction / Comment(s): Difficult IV starts; post op - almost passed out when getting up - BP dropped; requests numbing of vein prior to IV Rx, D/T severe pain in IV; son takes long time w aking up. Smoking Status: Former smoker - Past Family History Brother(s) Additional Family Medical History / Comment(s): blood clot in "neck" Mother Family Medical History: Cancer, Deep Vein Thrombosis (DVT) Medications and Allergies Home Medications Medication Instructions Recorded Confirmed Type Cyclobenzaprine [Flexeril] 10 mg PO TID PRN 02/21/17 04/02/20 History estradioL [Estradiol 0.025 MG 0.5 mg TRANSDERM WEEKLY 02/21/17 04/02/20 History Patch] Albuterol Inhaler (Mhu) [Ventolin 2 puff INHALATION Q6HR PRN 01/25/18 04/02/20 History Hfa Inhaler] Alive Multivitamin 2 tab PO DAILY 01/25/18 04/02/20 History Cyanocobalamin (Vitamin B-12) 2,000 mcg PO DAILY 01/25/18 04/02/20 History [Vitamin B-12] Ergocalciferol [Vitamin D2 50,000 unit PO MO 01/25/18 04/02/20 History (DRISDOL)] FLUoxetine HCL [PROzac] 20 mg PO W/LUNCH 01/25/18 04/02/20 History Fluticasone Nasal [place] [Flonase 2 spray EA NOSTRIL DAILY PRN 01/25/18 04/02/20 History Nasal [place]] L.acidoph,Paracasei, B.lactis 1 each PO DAILY 01/25/18 04/02/20 History [Probiotic] Montelukast [Singulair] 10 mg PO W/LUNCH 01/25/18 04/02/20 History Vitamin B Complex 1 each PO DAILY 01/25/18 04/02/20 History Zolpidem [Ambien] 10 mg PO HS 01/25/18 04/02/20 History Levothyroxine Sodium [Synthroid] 75 mcg PO QAM 04/24/18 04/02/20 History polyethylene glycoL 3350 [Miralax] 17 gm PO DAILY PRN 04/24/18 04/02/20 History ALPRAZolam [Xanax] 0.25 mg PO BID PRN 01/21/20 04/02/20 History Cetirizine HCl [Zyrtec] 10 mg PO DAILY 01/21/20 04/02/20 History Dextrose Chew [Glucose Chew Tab] 4 gm PO Q10M PRN 01/21/20 04/02/20 History Ibuprofen 800 mg PO Q12H PRN 01/21/20 04/02/20 History Vitamin A 10,000 unit PO DAILY 01/21/20 04/02/20 History hydrOXYzine HCL [Atarax] 25 mg PO QID PRN 01/21/20 04/02/20 History Allergies Allergy/AdvReac Type Severity Reaction Status Date / Time meperidine HCl [From Demerol] AdvReac SEVERE Verified 04/02/20 14:21 Itching WOOL AdvReac Itching Uncoded 04/02/20 14:21
[~2020-04-07 10:57] MED LIST changes: -DEXAMETHASONE SOD PHOSPHATE 10 MG/ML 1 ML VIAL IV ONE; -HEPARIN SODIUM,PORCINE 5,000 UNIT/ML 1 ML VIAL SQ ONE; +LIDOCAINE 1% (10MG/ML) FOR IV START INTRADERMA PRN; -LIDOCAINE 1% 20 ML VIAL (10MG/ML) FOR IV START INTRADERMA PRN; -ONDANSETRON 4 MG/2 ML VIAL IVP ONE; -Pre Op ABX Message 1 EACH MISC MISCELLANE ONE; -SCOPOLAMINE 1.5MG/72HR PATCH TRANSDERM ONE
[2020-04-07 11:25] VITALS: TEMP 97.5
[2020-04-07 11:40] LABS: Glucose,Whole Blood 82 mg/dL (75-99)
[2020-04-07] MEDS ORDERED: LIDOCAINE 1% INJ 10MG/ML (20 ML MDV) ONE (12:26)
[2020-04-07] MEDS ORDERED: PROPOFOL 10 MG/ML 20 ML VIAL IV ONE (12:26)
--- NOTE | 2020-04-07 12:53 | P.PCN ---
Date of Procedure: 04/07/20 Description of Procedure: PREOPERATIVE DIAGNOSIS: Dysphagia. Epigastric abdominal pain POSTOPERATIVE DIAGNOSIS: Gastric stricture Gastritis, acute recent bleeding OPERATION: Esophagogastrojejunoscopy with balloon dilatation from 12 to 19 mm. Esophagogastrojejunoscopy with cold forceps biopsies gastric pouch SURGEON: Nataliia Flores MD ANESTHESIA: MAC. INDICATIONS: The patient is a 45-year-old female who presents with a history of dysphagia, nausea, epigastric abdominal pain. Benefits and risks of the procedure were described. Informed consent was obtained. DESCRIPTION: The patient was brought into the endoscopy suite and laid in the left lateral decubitus position. After a timeout was confirmed, the procedure was initiated. An Olympus gastroscope was passed along the posterior oropharynx down to the distal esophagus where the squamocolumnar junction was unremarkable. The gastric pouch was entered. A gastrojejunal stricture of 15 mm was found as the adult gastroscope was 9.5 mm in size. A Think Passenger balloon dilator was placed through the scope. Final insufflation up to 20 mm was performed with a total of 2 minutes. The scope was advanced up to 60 cm from the incisors into the Anival limb. The mucosa of the gastrojejunal anastomosis was intact. Biopsies were obtained of the gastric pouch for acute gastritis with recent bleeding. No chronic gastrojejunal marginal ulcer was encountered. No full-thickness injury was encountered. The GI tract was desufflated. The patient tolerated the procedure well. FINDINGS: Stricture of approximately 15 mm encountered. No chronic gastrojejunal ulceration encountered. Acute gastritis of gastric pouch with biopsies obtained using cold forceps Successful balloon dilatation to 19 mm. Gastric pouch 5 cm. RECOMMENDATIONS: 1. Discontinue all nonsteroidal anti-inflammatory drugs 2. Start omeprazole 40 mg daily for 2 weeks Plan - Discharge Summary Discharge Rx Participant: No New Discharge Prescriptions: New Omeprazole [PriLOSEC] 40 mg PO DAILY #14 cap Continue estradioL [Estradiol 0.025 MG Patch] 0.5 mg TRANSDERM WEEKLY Cyclobenzaprine [Flexeril] 10 mg PO TID PRN PRN Reason: Muscle Pain Cyanocobalamin (Vitamin B-12) [Vitamin B-12] 2,000 mcg PO DAILY Vitamin B Complex 1 each PO DAILY FLUoxetine HCL [PROzac] 20 mg PO W/LUNCH Albuterol Inhaler (Mhu) [Ventolin Hfa Inhaler (Mhu)] 2 puff INHALATION Q6HR PRN PRN Reason: sob Zolpidem [Ambien] 10 mg PO HS Montelukast [Singulair] 10 mg PO W/LUNCH Fluticasone Nasal [place] [Flonase Nasal [place]] 2 spray EA NOSTRIL DAILY PRN PRN Reason: Allergy Symptoms L.acidoph,Paracasei, B.lactis [Probiotic] 1 each PO DAILY Ergocalciferol [Vitamin D2 (DRISDOL)] 50,000 unit PO MO Alive Multivitamin 2 tab PO DAILY Levothyroxine Sodium [Synthroid] 75 mcg PO QAM polyethylene glycoL 3350 [Miralax] 17 gm PO DAILY PRN PRN Reason: Constipation Dextrose Chew [Glucose Chew Tab] 4 gm PO Q10M PRN PRN Reason: Hypoglycemia Cetirizine HCl [Zyrtec] 10 mg PO DAILY ALPRAZolam [Xanax] 0.25 mg PO BID PRN PRN Reason: Anxiety hydrOXYzine HCL [Atarax] 25 mg PO QID PRN PRN Reason: Itching Vitamin A 10,000 unit PO DAILY Discontinued Ibuprofen 800 mg PO Q12H PRN PRN Reason: Pain Discharge Medication List Cyclobenzaprine [Flexeril] 10 mg PO TID PRN 02/21/17 [History] estradioL [Estradiol 0.025 MG Patch] 0.5 mg TRANSDERM WEEKLY 02/21/17 [History] Albuterol Inhaler (Mhu) [Ventolin Hfa Inhaler (Mhu)] 2 puff INHALATION Q6HR PRN 01/25/18 [History] Alive Multivitamin 2 tab PO DAILY 01/25/18 [History] Cyanocobalamin (Vitamin B-12) [Vitamin B-12] 2,000 mcg PO DAILY 01/25/18 [History] Ergocalciferol [Vitamin D2 (DRISDOL)] 50,000 unit PO MO 01/25/18 [History] FLUoxetine HCL [PROzac] 20 mg PO W/LUNCH 01/25/18 [History] Fluticasone Nasal [place] [Flonase Nasal [place]] 2 spray EA NOSTRIL DAILY PRN 01/25/18 [History] L.acidoph,Paracasei, B.lactis [Probiotic] 1 each PO DAILY 01/25/18 [History] Montelukast [Singulair] 10 mg PO W/LUNCH 01/25/18 [History] Vitamin B Complex 1 each PO DAILY 01/25/18 [History] Zolpidem [Ambien] 10 mg PO HS 01/25/18 [History] Levothyroxine Sodium [Synthroid] 75 mcg PO QAM 04/24/18 [History] polyethylene glycoL 3350 [Miralax] 17 gm PO DAILY PRN 04/24/18 [History] ALPRAZolam [Xanax] 0.25 mg PO BID PRN 01/21/20 [History] Cetirizine HCl [Zyrtec] 10 mg PO DAILY 01/21/20 [History] Dextrose Chew [Glucose Chew Tab] 4 gm PO Q10M PRN 01/21/20 [History] Vitamin A 10,000 unit PO DAILY 01/21/20 [History] hydrOXYzine HCL [Atarax] 25 mg PO QID PRN 01/21/20 [History] Omeprazole [PriLOSEC] 40 mg PO DAILY #14 cap 04/07/20 [Rx] Follow up Appointment(s)/Referral(s): Nataliia Flores MD [STAFF PHYSICIAN] - 04/13/20 Patient Instructions/Handouts: Gastritis (DC), Diet for Stomach Ulcers and Gastritis (ED) Activity/Diet/Wound Care/Special Instructions: Avoid ibuprofen, Excedrin, Motrin, Excedrin, aspirin, nonsteroidal anti- inflammatory drugs Discharge Disposition: HOME SELF-CARE
[2020-04-07 12:56] VITALS: BP 119/77
[2020-04-07 13:12] VITALS: PULSE 67; RESP 16
== END 2020-04-07 13:31 | disposition home or self-care (01) ==
LOC: ORWHC2ENDO 10:57
PROVIDERS: ATTEND Surgery Plastic and Reconstructive Surgery
DX: K95.89 Other complications of other bariatric procedure (principal); K29.01 Acute gastritis with bleeding; K29.51 Unspecified chronic gastritis with bleeding; K31.89 Other diseases of stomach and duodenum; K21.9 Gastro-esophageal reflux disease without esophagitis; J45.909 Unspecified asthma, uncomplicated; M19.90 Unspecified osteoarthritis, unspecified site; G47.30 Sleep apnea, unspecified; E07.9 Disorder of thyroid, unspecified; I83.90 Asymptomatic varicose veins of unspecified lower extremity; K52.9 Noninfective gastroenteritis and colitis, unspecified; K91.1 Postgastric surgery syndromes; M26.609 Unspecified temporomandibular joint disorder, unspecified side; K08.409 Partial loss of teeth, unspecified cause, unspecified class; N39.3 Stress incontinence (female) (male); I99.9 Unspecified disorder of circulatory system; Z88.5 Allergy status to narcotic agent; Z85.41 Personal history of malignant neoplasm of cervix uteri; Z86.69 Personal history of other diseases of the nervous system and sense organs; Z87.39 Personal history of other diseases of the musculoskeletal system and connective tissue; Z87.19 Personal history of other diseases of the digestive system; Z86.39 Personal history of other endocrine, nutritional and metabolic disease; Z86.2 Personal history of diseases of the blood and blood-forming organs and certain disorders involving the immune mechanism; Z90.49 Acquired absence of other specified parts of digestive tract; Z90.710 Acquired absence of both cervix and uterus; Z98.890 Other specified postprocedural states; Z90.89 Acquired absence of other organs; Z98.51 Tubal ligation status; Z91.89 Other specified personal risk factors, not elsewhere classified; Z84.89 Family history of other specified conditions; Z87.898 Personal history of other specified conditions; Z87.891 Personal history of nicotine dependence; Z82.49 Family history of ischemic heart disease and other diseases of the circulatory system; Z80.9 Family history of malignant neoplasm, unspecified; Z79.899 Other long term (current) drug therapy; Z79.890 Hormone replacement therapy; Z79.1 Long term (current) use of non-steroidal anti-inflammatories (NSAID); Z91.09 Other allergy status, other than to drugs and biological substances
CPT/HCPCS: 43245; 43239; 88305; J2001; J2704; C1726; 43249